=== PATIENT | male | born 1965 | race Two or more races ===

== ENCOUNTER 2025-01-15 10:46 | Inpatient (IN) | payer OTHER ==
[2025-01-15] VITALS (7 sets, daily range): BP systolic 106–124; BP diastolic 67–79; PULSE 86–101; RESP 16–20; TEMP 98; O2SAT 91–100
[~2025-01-15] VITALS: Ht 170.2 cm; Wt 57.0 kg
--- NOTE | 2025-01-15 11:19 | ED.PDOC ---
History of Present Illness HPI Comments 59 y/o M, with PMHx dementia, Alzheimer, and HTN presents to the ED for CC of failure to thrive. EMS reports, patient is coming from custodial facility where staff called d/t patient becoming increasingly weak. No other symptoms or modifying factors present at this time. Chief Complaint: Failure to Thrive Time Seen by MD: 11:15 Reviewed Notes: Nurses Notes, Water Taxi Captain Notes, Medications, Allergies Allergies: Coded Allergies: NO KNOWN ALLERGIES (Unverified , 01/15/25) Information Source: Emergency Med Personnel Mode of Arrival: EMS Severity: Moderate Timing: Weeks Duration: Since onset Prehospital treatment: None Past Medical History PAST MEDICAL HISTORY: Denies Surgical History: Denies all surgeries Family History Family History: Unknown Social History Smoker: Non-Smoker Alcohol: Denies ETOH Use Drugs: Denies Drug Use Lives In: Home Unable to Obtain due to: Dementia Physical Exam General Appearance: No Apparent Distress, Normal HEENT: Normal ENT Inspection, Pharynx Normal Neck: Full Range of Motion, Non-Tender, Normal, Normal Inspection Respiratory: Chest Non-Tender, Lungs Clear, No Accessory Muscle Use, No Respiratory Distress, Normal Breath Sounds Cardiovascular: No Edema, No Murmur, No Gallop, Normal Peripheral Pulses, Regular Rate/Rhythm Breast Exam: Deferred Gastrointestinal: No Organomegaly, Non Tender, No Pulsatile Mass, Normal Bowel Sounds, Soft Genitalia: Deferred Pelvic: Deferred Rectal: Deferred Extremities: No calf tenderness, Normal capillary refill, Normal inspection, Normal range of motion, Non-tender, No pedal edema Musculoskeletal : Apperance: Normal Neurologic: sourcing manager II-XII nml as Tested, No Motor Deficits, Normal Affect, No Sensory Deficits, Speech Problem (Nonverbal) Cerebellar Function: Normal Reflexes: Normal Skin: Dry, Normal Color, Warm Lymphatic: No Adenopathy Was a procedure done? Was a procedure done?: No Differential Dx Considerations may include: Infection, CVA, dementia, Alzheimer's X-Ray, Labs, Meds, VS Vital Signs Date Time Temp Pulse Resp B/P (MAP) Pulse Ox O2 Delivery O2 Flow Rate FiO2 01/15/25 13:02 98.8 99 11 119/68 (85) 97 98.8 01/15/25 12:29 18 99 Nasal Cannula* 3 32 01/15/25 12:27 113/78 01/15/25 12:16 88 01/15/25 11:40 86 20 97 Room Air* 0 21 01/15/25 11:34 88 18 96/57 (70) 98 01/15/25 11:03 88 01/15/25 10:50 97.2 91 16 108/50 (69) 97 97.2 Lab Test 01/15/25 13:10 01/15/25 13:03 01/15/25 12:23 01/15/25 12:00 Range/Units Lactic Acid Level 5.7 *H 0.4-2.0 mmol/L Troponin I High Sensitivity 82 *H </=54 ng/L POC Glucose 125 H 70-106 mg/dl Urine Color Yellow Yellow Urine Clarity Clear Clear Urine pH 5.5 5.0-9.0 Urine Specific [place] 1.018 1.001-1.035 Urine Protein Negative Negative Urine Ketones Negative Negative Urine Blood 1+ H Negative /uL Urine Nitrite Negative Negative Urine Bilirubin Negative Negative Urine Urobilinogen Normal Negative mg/dL Urine Leukocyte Esterase Negative Negative /uL Urine RBC 17 0 - 3 /hpf Urine Microscopic WBC 4 H 0-3 /HPF Urine Squamous Epithelial Cells None seen <5 /hpf Urine Bacteria None seen None Seen /hpf Urine Glucose Normal Normal mg/dL Test 01/15/25 11:15 Range/Units White Blood Count 16.3 H 4.4-10.8 10^3/uL Red Blood Count 4.99 4.5-5.90 10^6/uL Hemoglobin 14.4 13.5-17.5 g/dL Hematocrit 45.4 41.0-53.0 % Mean Corpuscular Volume 90.9 80.0-100.0 fL Mean Corpuscular Hemoglobin 28.8 28.0-32.0 pg Mean Corpuscular Hemoglobin Concent 31.7 L 32.0-36.0 g/dL Red Cell Distribution Width 17.1 H 11.8-14.3 % Platelet Count 372 140-450 10^3/uL Mean Platelet Volume 9.3 6.9-10.8 fL Neutrophils (%) (Auto) 86.7 H 37.0-80.0 % Lymphocytes (%) (Auto) 6.6 L 10.0-50.0 % Monocytes (%) (Auto) 6.6 0.0-12.0 % Eosinophils (%) (Auto) 0.0 0.0-7.0 % Basophils (%) (Auto) 0.1 0.0-2.0 % Neutrophils # (Auto) 14.1 H 1.6-8.6 10 ^3/uL Lymphocytes # (Auto) 1.1 0.4-5.4 10 ^3/uL Monocytes # (Auto) 1.1 0-1.3 10 ^3/uL Eosinophils # (Auto) 0 0-0.8 10 ^3/uL Basophils # (Auto) 0 0-0.2 10 ^3/uL Nucleated Red Blood Cells 0.0 % Sodium Level 184 *H 136-145 mmol/L Potassium Level 6.1 *H 3.5-5.1 mmol/L Chloride Level 137 H 98-107 mmol/L Carbon Dioxide Level 19 L 20-31 mmol/L Anion Gap 28 H 5-15 Blood Urea Nitrogen 153 *H 9-23 mg/dL Creatinine 12.95 *H 0.700-1.30 mg/dL Glomerular Filtration Rate Calc 4 >90 mL/min BUN/Creatinine Ratio 11.8 10.0-20.0 Serum Glucose 144 H 74-106 mg/dL Lactic Acid Level 4.9 *H 0.4-2.0 mmol/L Calcium Level 9.3 8.7-10.4 mg/dL Troponin I High Sensitivity 97 *H </=54 ng/L Current Medications Medications (Trade) Dose Ordered Sig/Talha Route Start Time Stop Time Status Last Admin Sodium Chloride 2,050 ml @ 2,050 mls/hr ONCE ONCE IV 01/15/25 12:15 01/15/25 13:14 DC 01/15/25 12:28 Insulin Human Regular (InsuLIN R) 5 units ONCE ONCE IV 01/15/25 12:15 01/15/25 12:16 DC 01/15/25 12:25 Dextrose 50 ml ONCE ONCE IV 01/15/25 12:15 01/15/25 12:16 DC 01/15/25 12:22 Albuterol (Ventolin Medneb) 20 mg ONCE ONCE NEB 01/15/25 12:15 01/15/25 12:16 DC 01/15/25 12:28 Sodium Bicarbonate 50 ml ONCE ONCE IV 01/15/25 12:15 01/15/25 12:16 DC 01/15/25 12:22 Furosemide (Lasix Injection) 20 mg ONCE ONCE IV 01/15/25 12:15 01/15/25 12:16 DC 01/15/25 12:27 Calcium Gluconate/ Sodium Chloride 50 ml @ 120 mls/hr ONCE ONCE IV 01/15/25 12:15 01/15/25 12:39 DC 01/15/25 12:23 Cefepime HCl 50 ml @ 12.5 mls/hr ONCE ONCE IV 01/15/25 12:45 01/15/25 16:44 01/15/25 12:54 Vancomycin HCl 200 ml @ 200 mls/hr ONCE ONCE IV 01/15/25 12:45 01/15/25 13:44 DC 01/15/25 12:54 Sodium Chloride 1,000 ml @ 1,000 mls/hr Q1H ONCE IV 01/15/25 12:45 01/15/25 13:44 DC 01/15/25 13:03 [place] [id number] Ph: [phone] DIAGNOSTIC IMAGING Diagnostic Imaging Report : [id number] Signed PATIENT: MOMO JENSEN ACCT: [id number] UNIT: [id number] : 1965 LOC: ER ROOM / BED: / AGE / SEX: 59 / M ADM STATUS: REG ER SERVICE 1103 ORDERING PHYSICIAN: LINDA CARLSON MD PROCEDURE(s): CXRP - CHEST PORTABLE REASON: [facility] ORDER NUMBER(s): [id number], ACCESSION NUMBER(s): [id number] EXAM: XY CHEST PORTABLE HISTORY: ams COMPARISON: None TECHNIQUE: Portable AP view of the chest was performed. FINDINGS: No pneumothorax, consolidative infiltrates, or pulmonary edema. The heart is not enlarged. There is thoracic dextroscoliosis. IMPRESSION: No acute intrathoracic process. ATED BY: JENNIFER MANUEL MD DICTATED DATE/TIME: 01/15/251225 SIGNED BY: JENNIFER MANUEL MD SIGNED DATE/TIME: 01/15/251225 CC: [place] [id number] Ph: [phone] DIAGNOSTIC IMAGING Diagnostic Imaging Report : [id number] Signed PATIENT: MOMO JENSEN ACCT: [id number] UNIT: [id number] : 1965 LOC: ER ROOM / BED: / AGE / SEX: 59 / M ADM STATUS: REG ER SERVICE 1103 ORDERING PHYSICIAN: LINDA CARLSON MD PROCEDURE(s): HWOCT - HEAD WITHOUT CONTRAST REASON: ams ORDER NUMBER(s): [id number], ACCESSION NUMBER(s): [id number] EXAM: CT HEAD WITHOUT CONTRAST HISTORY: ams COMPARISON: None TECHNIQUE: Noncontrast axial CT images of the head were performed. Sagittal and coronal reformatted images were obtained. This CT exam was performed using 1 or more of the following dose reduction techniques: Automated exposure control, adjustment of the mA and/or kv according to patient size, or the use of it erative reconstruction techniques. Radiation Dose: CTDI volume is 52.31 mGy. Dose-length product is 838.66 mGy*cm FINDINGS: There is right frontotemporal encephalomalacia. There is decreased attenuation in the periventricular white matter. There are old lacunar infarcts of the bilateral basal ganglia and external capsules. No intracranial hemorrhage, mass, midline shift, hydrocephalus, or evidence of acute large vessel infarct. The partially-visualized paranasal sinuses are clear. The bilateral mastoid air cells and middle ear spaces are clear. No cranial fracture or scalp edema. IMPRESSION: Global brain atrophy and chronic ischemic changes without evidence of acute intracranial process. ATED BY: JENNIFER MANUEL MD DICTATED DATE/TIME: 01/15/25 1235 SIGNED BY: JENNIFER MANUEL MD SIGNED DATE/TIME: 01/15/25 1235 CC: Time of 1ST Reevaluation: 11:45 Reevaluation 1ST: Unchanged Patient Education/Counseling: Diagnosis, Treatment Family Education/Counseling: No Family Present Sepsis Sepsis Reasesment Focused Exam Orders: Laboratory Tests 01/15/25 11:15: Lactic Acid Level 4.9 01/15/25 13:10: Lactic Acid Level 5.7 Departure 1 Departure Time of Disposition: 13:52 (Patient with a worsening altered mental status concerning for metabolic encephalopathy, possible sepsis. We will not give the patient full fluid boluses patient severely hypernatremic so we will administer fluids slowly. Patient likely had obstructive uropathy causing renal failure. After catheter was placed patient had more than a Liter out.) Impression: Primary Impression: Acute metabolic encephalopathy Additional Impressions: Sepsis Qualified Codes: A41.9 - Sepsis, unspecified organism; R65.20 - Severe sepsis without septic shock; G93.41 - Metabolic encephalopathy Generalized weakness Acute renal failure Qualified Codes: N17.9 - Acute kidney failure, unspecified Disposition: ADMITTED INPATIENT Admit to: Tele Condition: Critical Critical Care Note Critical Care Time?: Yes Critical care comment: Sepsis Authorized and Performed by: Linda Carlson MD Total critical care time: Approximately 48 minutes Due to a high probability of clinically significant, life threatening deterioration, the patient required my highest level of preparedness to intervene emergently and I personally spent this critical care time directly and personally managing the patient. This critical care time included obtaining a history; examining the patient; pulse oximetry; ordering and review of studies; arranging urgent treatment with development of a management plan; evaluation of patient's response to treatment; frequent reassessment; and, discussions with other providers. This critical care time was performed to assess and manage the high probability of imminent, life-threatening deterioration that could result in multi-organ failure. It was exclusive of separately billable procedures and treating other patients and teaching time. Please see my other sections and the rest of the note for further information on patient assessment and treatment. Stability Stability form required: No Heart Score Heart Score: Heart Score Response (Comments) Value History N/A 0 EKG N/A 0 Age N/A 0 Risk Factors N/A 0 Troponin N/A 0 Total 0 I personally scribed for LINDA CARLSON MD ([email or web address]) on 01/15/25 at 11:19. Electronically submitted by Shannon Reno ([email or web address]). I personally scribed for LINDA CARLSON MD ([email or web address]) on 01/15/25 at 12:51. Electronically submitted by Shannon Reno ([email or web address]). LINDA CARLSON MD Jan 15, 2025 11:19
[2025-01-15 11:29] LABS: Basophils # (auto) 0 10 ^3/uL (0-0.2); Basophils % (auto) 0.1 % (0.0-2.0); Eosinophils # (auto) 0 10 ^3/uL (0-0.8); Hematocrit 45.4 % (41.0-53.0); Hemoglobin 14.4 g/dL (13.5-17.5); Lymphocytes # (auto) 1.1 10 ^3/uL (0.4-5.4); Lymphocytes % (auto) 6.6 % (10.0-50.0); Mean Corpuscular Hemoglobin 28.8 pg (28.0-32.0); Mean Corpuscular Hgb Conc. 31.7 g/dL (32.0-36.0); Mean Corpuscular Volume 90.9 fL (80.0-100.0); Monocytes # (auto) 1.1 10 ^3/uL (0-1.3); Monocytes % (auto) 6.6 % (0.0-12.0); Neutrophils # (auto) 14.1 10 ^3/uL (1.6-8.6); Neutrophils % (auto) 86.7 % (37.0-80.0); Platelet Count (auto) 372 10^3/uL (140-450); Red Blood Cells 4.99 10^6/uL (4.5-5.90); Red Cell Distribution Width 17.1 % (11.8-14.3); White Blood Cell 16.3 10^3/uL (4.4-10.8)
[2025-01-15 11:46] LABS: Anion Gap 28 (5-15); Calcium 9.3 mg/dL (8.7-10.4)
[2025-01-15 12:00] LABS: BUN/Creatinine Ratio 11.8 (10.0-20.0)
[2025-01-15 12:02] LABS: Carbon Dioxide 19 mmol/L (20-31); Chloride 137 mmol/L (98-107); Glucose 144 mg/dL (74-106)
[2025-01-15 12:04] LABS: Blood Urea Nitrogen 153 mg/dL (9-23); Potassium 6.1 mmol/L (3.5-5.1); Sodium 184 mmol/L (136-145)
[2025-01-15 12:05] LABS: Lactic Acid w/Reflex 4.9 mmol/L (0.4-2.0)
[2025-01-15 12:19] LABS: Urine Bacteria None Seen /hpf (None Seen)
[2025-01-15] MEDS: SODIUM BICARB 8.4% 50Meq/50ml SYR INJ IV ONE (12:22)
[2025-01-15] MEDS: DEXTROSE (50%) 50ML SYRG IV ONE (12:22)
[2025-01-15] MEDS: CALCIUM GLUC 1,000mg/50ml-NS 50 ML IV ONE (12:23)
[2025-01-15] MEDS: InsuLIN REG 1unit/0.01ml Soln (100units/ml) IV ONE (12:25)
[2025-01-15] MEDS: FUROSEMIDE 20 MG/2 ML VIAL IV ONE (12:27)
[2025-01-15] MEDS: SODIUM CHLORIDE 0.9% 2,050 ML IV ONE (12:28)
[2025-01-15] MEDS: ALBUTEROL SULF 2.5 MG/0.5ML(0.5%) NEB SOLN NEB ONE (12:28)
--- NOTE | 2025-01-15 12:29 | DVH ---
EXAM: XY CHEST PORTABLE HISTORY: ams COMPARISON: None TECHNIQUE: Portable AP view of the chest was performed. FINDINGS: No pneumothorax, consolidative infiltrates, or pulmonary edema. The heart is not enlarged. There is t horacic dextroscoliosis. IMPRESSION: No acute intrathoracic process.
[2025-01-15 12:35] LABS: Urine Blood 1+ /uL (Negative); Urine Clarity Clear (Clear); Urine Color Yellow (Yellow); Urine Protein, UAD Negative (Negative); Urine Specific Gravity 1.018 (1.001-1.035); Urine Squamous Epithelial Cell None Seen /hpf (<5); Urine Urobilinogen Normal (Negative); Urine WBC 4 /HPF (0-3); Urine pH 5.5 (5.0-9.0)
--- NOTE | 2025-01-15 12:38 | DVH ---
EXAM: CT HEAD WITHOUT CONTRAST HISTORY: ams COMPARISON: None TECHNIQUE: Noncontrast axial CT images of the head were performed. Sagittal and coronal reformatted i mages were obtained. This CT exam was performed using 1 or more of the following dose reduction techn iques: Automated exposure control, adjustment of the mA and/or kv according to patient size, or the u se of iterative reconstruction techniques. Radiation Dose: CTDI volume is 52.31 mGy. Dose-length product is 838.66 mGy*cm FINDINGS: There is right frontotemporal encephalomalacia. There is decreased attenuation in the periventricula r white matter. There are old lacunar infarcts of the bilateral basal ganglia and external capsules. No intracranial hemorrhage, mass, midline shift, hydrocephalus, or evidence of acute large vessel in farct. The partially-visualized paranasal sinuses are clear. The bilateral mastoid air cells and midd le ear spaces are clear. No cranial fracture or scalp edema. IMPRESSION: Global brain atrophy and chronic ischemic changes without evidence of acute intracranial process.
[2025-01-15] MEDS: CEFEPIME 2GM/50ML NS 50 ML IV ONE (12:54)
[2025-01-15] MEDS: VANCOMYCIN 1GM/200ML PM 200 ML IV ONE (12:54)
[2025-01-15] MEDS: SODIUM CHLORIDE 0.9% 1,000 ML IV ONE ×2 (13:03→14:20)
[2025-01-15] MEDS ORDERED: DEXTROSE (50%) 50ML SYRG IV PRN (16:00)
[2025-01-15] MEDS ORDERED: ENOXAPARIN SOD 100 MG/1 ML SYRINGE SC ONE (16:00)
[2025-01-15] MEDS ORDERED: NITROGLYCERIN 0.4 MG SL TAB SL PRN (16:00)
[2025-01-15] MEDS ORDERED: MORPHINE SULFATE INJ 2 MG/ml SYRG IV PRN (16:00)
--- NOTE | 2025-01-15 16:07 | DVHHP2 ---
History of Present Illness Reason for Visit: Failure to thrive History of Present Illness Patient is a 59-year-old male transported to the emergency room by ambulance with reports of worsening lethargy/failure to thrive. Upon arrival to the hospital, patient was found to be severely cachectic. Patient is currently aphasic, but was able to follow simple commands and nods yes and no. Apparently, the patient has a history of being aphasic. [facility], significant history of the patient includes HIV, hypertension, diabetes mellitus, and unspecified psychiatric diagnosis for which he takes Seroquel. Patient was found to be hyperkalemic, with a potassium of 6.1, with severely elevated BUN and creatinine (123/12.9) as well as patient having a sodium level of 184. Patient also has white blood cell count of 16.1. Lactic acid level of 4.9. Cardiovascular: HTN Infectious disease: HIV Endocrine: Diabetes Review of Systems Review of Systems Patient aphasic and denies any symptoms. Somewhat encephalopathic. Allergies: Coded Allergies: NO KNOWN ALLERGIES (Unverified , 01/15/25) Medications Current Medications Medications Dose Ordered Sig/[place] Route Start Time Stop Time Status Last Admin Dose Admin Nitroglycerin 0.4 mg Q5MINP PRN SL 01/15/25 16:00 UNV Morphine Sulfate 2 mg Q30M PRN IV 01/15/25 16:00 UNV Dextrose 1,000 ml @ 200 mls/hr Q5H IV 01/15/25 16:00 UNV Pantoprazole Sodium 40 mg DAILY IV 01/16/25 10:00 UNV Exam Vital Signs Vital Signs Date Time Temp Pulse Resp B/P (MAP) Pulse Ox O2 Delivery O2 Flow Rate FiO2 01/15/25 13:02 98.8 99 11 119/68 (85) 97 98.8 01/15/25 12:29 Nasal Cannula* 3 32 General Appearance: Alert, moderate distress, Other (Disheveled) HEENT: Atraumatic, PERRLA Respiratory: Clear to auscultation, Normal air movement Cardiovascular: Normal S1, Normal S2, Other (ST depressions noted) Extremities: Other (Systemic dry skin with noted scratch [place] throughout his body) Skin: No significant lesion (Systemic dry skin with noted scratch [place] throughout his body) Psych/Mental Status: Other (Withdrawn) Labs/Xrays Labs Test 01/15/25 15:13 01/15/25 13:10 01/15/25 12:23 01/15/25 12:00 Range/Units Potassium Level 4.9 3.5-5.1 mmol/L Troponin I High Sensitivity 91 *H </=54 ng/L Lactic Acid Level 5.7 *H 0.4-2.0 mmol/L POC Glucose 125 H 70-106 mg/dl Urine Color Yellow Yellow Urine Clarity Clear Clear Urine pH 5.5 5.0-9.0 Urine Specific [place] 1.018 1.001-1.035 Urine Protein Negative Negative Urine Ketones Negative Negative Urine Blood 1+ H Negative /uL Urine Nitrite Negative Negative Urine Bilirubin Negative Negative Urine Urobilinogen Normal Negative mg/dL Urine Leukocyte Esterase Negative Negative /uL Urine RBC 17 0 - 3 /hpf Urine Microscopic WBC 4 H 0-3 /HPF Urine Squamous Epithelial Cells None seen <5 /hpf Urine Bacteria None seen None Seen /hpf Urine Glucose Normal Normal mg/dL Test 01/15/25 11:15 Range/Units White Blood Count 16.3 H 4.4-10.8 10^3/uL Red Blood Count 4.99 4.5-5.90 10^6/uL Hemoglobin 14.4 13.5-17.5 g/dL Hematocrit 45.4 41.0-53.0 % Mean Corpuscular Volume 90.9 80.0-100.0 fL Mean Corpuscular Hemoglobin 28.8 28.0-32.0 pg Mean Corpuscular Hemoglobin Concent 31.7 L 32.0-36.0 g/dL Red Cell Distribution Width 17.1 H 11.8-14.3 % Platelet Count 372 140-450 10^3/uL Mean Platelet Volume 9.3 6.9-10.8 fL Neutrophils (%) (Auto) 86.7 H 37.0-80.0 % Lymphocytes (%) (Auto) 6.6 L 10.0-50.0 % Monocytes (%) (Auto) 6.6 0.0-12.0 % Eosinophils (%) (Auto) 0.0 0.0-7.0 % Basophils (%) (Auto) 0.1 0.0-2.0 % Neutrophils # (Auto) 14.1 H 1.6-8.6 10 ^3/uL Lymphocytes # (Auto) 1.1 0.4-5.4 10 ^3/uL Monocytes # (Auto) 1.1 0-1.3 10 ^3/uL Eosinophils # (Auto) 0 0-0.8 10 ^3/uL Basophils # (Auto) 0 0-0.2 10 ^3/uL Nucleated Red Blood Cells 0.0 % Sodium Level 184 *H 136-145 mmol/L Chloride Level 137 H 98-107 mmol/L Carbon Dioxide Level 19 L 20-31 mmol/L Anion Gap 28 H 5-15 Blood Urea Nitrogen 153 *H 9-23 mg/dL Creatinine 12.95 *H 0.700-1.30 mg/dL Glomerular Filtration Rate Calc 4 >90 mL/min BUN/Creatinine Ratio 11.8 10.0-20.0 Serum Glucose 144 H 74-106 mg/dL Calcium Level 9.3 8.7-10.4 mg/dL Assessment/Plan Assessment/Plan Impression: -metabolic encephalopathy probably secondary to severe dehydration -hyponatremia -acute kidney injury -hyperkalemia -NSTEMI, probably type 2 -history of primary hypertension -history of HIV -diabetes mellitus -cachexia -sepsis Plan: -admit to ICU -free water deficit: 9.3 L. half NS bolus x1 L then D5W at 200 mL/hour -serial BMP q.6 hours -empiric antibiotics: Cefepime, Zyvox -nephrology consultation -regular insulin sliding scale -swallow evaluation, we will add free water if patient can swallow on without having signs of aspiration -hold home antihypertensives, antidiabetic meds, antipsychotics -espino cultures Critical care time spent with patient discussing and formulating plan of care: 40 minutes. This does not include time spent performing procedures. This medical document was created using an electronic medical record system with Aditive dictation system. Although this document has been carefully reviewed, there may still be some phonetic and typographical errors. These areas are purely typographical due to imperfections of the software programs, and do not reflect any compromise in the patient's medical care. Plan discussed with: Patient, Other My Orders Orders - MARTIN SANCHEZ CANDY FEEDER Procedure Category Date Status Time Admit ADMIT 01/15/25 Transmitted 15:48 Nitroglycerin PHA 01/15/25 Logged Sublingual (Ntrostat 16:00 Morphine Sulfate PHA 01/15/25 Logged Injection 16:00 Stat Ekg For Chest NAIDA 01/15/25 Transmitted Pain 15:48 Notify Of Changes NAIDA 01/15/25 Transmitted From Base 15:48 Bean Snipper For NAIDA 01/15/25 Transmitted 24 Hours 15:48 Emergency Dysrhythmia NAIDA 01/15/25 Transmitted Protocol 15:48 Rhythm Strips Once NAIDA 01/15/25 Transmitted Every Shift 15:48 Oxygen By Nasal RT 01/15/25 Transmitted Cannula 15:48 D5w 5% (Dextrose 5%) PHA 01/15/25 Logged 16:00 * Swallow Request ST 01/15/25 Transmitted 15:48 Pantoprazole PHA 01/16/25 Logged (Protonix) 10:00 *[facility] CONS 01/15/25 Transmitted -[place] 15:48 Sod Chl 0.45% (Sodium PHA 01/15/25 Logged Chloride 0.45% Via 16:00 Electrocardigram EKG 01/15/25 Transmitted 15:48 Electrocardigram EKG 01/15/25 Transmitted 16:48 Basic Metabolic Panel LAB 01/15/25 Transmitted 18:00 Basic Metabolic Panel LAB 01/16/25 Verified 00:00 Basic Metabolic Panel LAB 01/16/25 Verified 06:00 Basic Metabolic Panel LAB 01/16/25 Verified 12:00 Basic Metabolic Panel LAB 01/16/25 Verified 18:00 Basic Metabolic Panel LAB 01/17/25 Verified 00:00 Basic Metabolic Panel LAB 01/17/25 Verified 06:00 Basic Metabolic Panel LAB 01/17/25 Verified 12:00 Enoxaparin Sodium PHA 01/15/25 Logged (Lovenox) 16:00 Enoxaparin Sodium PHA 01/16/25 Transmitted (Lovenox) 10:00 Cefepime 1 Gm PHA 01/16/25 Transmitted 10:00 Linzeolid 600 Mg Ivpb PHA 01/15/25 Transmitted 22:00 Glucose Blood PHA 01/15/25 Transmitted (Accu-Chek Comfort 17:00 Mild Sliding Scale PHA 01/15/25 Transmitted 17:00 Dextrose 50% Syringe PHA 01/15/25 Transmitted 16:00 Echo 2d Mode Cardiac US 01/15/25 Transmitted DOP 15:48 Complete Blood Count LAB 01/16/25 Verified 05:00 Complete Blood Count LAB 01/17/25 Verified 05:00 Complete Blood Count LAB 01/18/25 Verified 05:00 Complete Blood Count LAB 01/19/25 Verified 05:00 Complete Blood Count LAB 01/20/25 Verified 05:00 Date of Service: Jan 15, 2025 Billing Provider: MARTIN SANCHEZ NP Common Visit Codes: 07001-[id number] CARE 30-74 MIN MARTIN SANCHEZ NP Jan 15, 2025 16:07
[2025-01-15] MEDS: SOD CHL 0.45% 1,000 ML IV ONE (16:28)
[2025-01-15] MEDS: InsuLIN REG 1unit/0.01ml Soln (100units/ml) SC SCH (18:00)
[2025-01-15] MEDS: ENOXAPARIN SOD 60 MG/0.6 ML SYRINGE SC ONE (18:00)
[2025-01-15] MEDS: ACCU-CHEK COMFORT CURVE STRIP VI SCH (18:04)
[2025-01-15] MEDS: PERMETHRIN 5 % TOPICAL CREAM 60GM TOP ONE (18:04)
[2025-01-15 18:47] LABS: Anion Gap 27 (5-15)
[2025-01-15 18:53] LABS: BUN/Creatinine Ratio 13.7 (10.0-20.0)
[2025-01-15 19:12] LABS: Calcium 8.4 mg/dL (8.7-10.4); Carbon Dioxide 17 mmol/L (20-31); Chloride 142 mmol/L (98-107); Glucose 168 mg/dL (74-106); Potassium 4.9 mmol/L (3.5-5.1)
[2025-01-15 19:18] LABS: Blood Urea Nitrogen 130 mg/dL (9-23); Sodium 186 mmol/L (136-145)
[2025-01-15] MEDS: D5W 5% 1,000 ML IV SCH (21:23)
[2025-01-15] MEDS: LINEZOLID 600MG/300ML 300 ML IV SCH (21:52)
[2025-01-16] VITALS (30 sets, daily range): BP systolic 105–128; BP diastolic 61–93; PULSE 75–99; RESP 12–25; TEMP 98.4–99; O2SAT 28–100
[2025-01-16 01:30] LABS: Anion Gap 19 (5-15); BUN/Creatinine Ratio 12.7 (10.0-20.0); Carbon Dioxide 21 mmol/L (20-31); Potassium 4.2 mmol/L (3.5-5.1)
[2025-01-16 01:51] LABS: Calcium 7.6 mg/dL (8.7-10.4); Chloride 139 mmol/L (98-107); Glucose 227 mg/dL (74-106)
[2025-01-16 01:52] LABS: Sodium 179 mmol/L (136-145)
[2025-01-16 01:53] LABS: Blood Urea Nitrogen 90 mg/dL (9-23)
--- NOTE | 2025-01-16 03:12 | ECG ---
[facility] Test Date: 2025-01-15 Test Time: 11:03:17 Pat Name: MOMO JENSEN Department: ER Room: [address] [place] [address] Gender: M Flow Machine Operator: : 1965 Requested By: LINDA HEARD Order Number: [id number] Reading MD: Levy Jolley Measurements Intervals [place]inne Rate: 88 P: 85 WV: 116 QRS: 86 QRSD: 86 T: -80 QT: 437 QTc: 529 Interpretive Statements Sinus rhythm Borderline short WV interval Borderline right axis deviation Borderline repolarization abnormality Prolonged QT interval Electronically Signed On 01-16-2025 21:08:43 PDT by Levy Jolley Please click the below link to view image of tracing.
[2025-01-16 07:33] LABS: Basophils # (auto) 0 10 ^3/uL (0-0.2); Basophils % (auto) 0.1 % (0.0-2.0); Eosinophils # (auto) 0 10 ^3/uL (0-0.8); Eosinophils % (auto) 0.1 % (0.0-7.0); Hematocrit 41.8 % (41.0-53.0); Lymphocytes # (auto) 0.9 10 ^3/uL (0.4-5.4); Mean Corpuscular Hemoglobin 28.8 pg (28.0-32.0); Mean Corpuscular Hgb Conc. 31.1 g/dL (32.0-36.0); Mean Corpuscular Volume 92.5 fL (80.0-100.0); Monocytes # (auto) 0.5 10 ^3/uL (0-1.3); Neutrophils # (auto) 16.2 10 ^3/uL (1.6-8.6); Neutrophils % (auto) 91.8 % (37.0-80.0); Platelet Count (auto) 284 10^3/uL (140-450); Red Blood Cells 4.51 10^6/uL (4.5-5.90); Red Cell Distribution Width 16.8 % (11.8-14.3); White Blood Cell 17.7 10^3/uL (4.4-10.8)
[2025-01-16 07:58] LABS: Anion Gap 20 (5-15); Carbon Dioxide 20 mmol/L (20-31); Potassium 3.8 mmol/L (3.5-5.1)
[2025-01-16 08:04] LABS: BUN/Creatinine Ratio 15.9 (10.0-20.0)
[2025-01-16 08:06] LABS: Chloride 137 mmol/L (98-107); Glucose 295 mg/dL (74-106)
[2025-01-16 08:11] LABS: Blood Urea Nitrogen 85 mg/dL (9-23); Sodium 177 mmol/L (136-145)
[2025-01-16] MEDS ORDERED: IPRATROPIUM BROM 0.5 MG/2.5ML INH SOL NEB PRN (08:45)
[2025-01-16] MEDS ORDERED: ACETAMINOPHEN 500 MG TAB or CAP PO PRN (08:45)
[2025-01-16] MEDS ORDERED: ALBUTEROL SULF 2.5 MG/0.5ML(0.5%) NEB SOLN NEB PRN (08:45)
[2025-01-16] MEDS ORDERED: DOCUSATE SOD 100 MG CAP PO PRN (08:45)
[2025-01-16] MEDS ORDERED: HYDROcodone-ACET 5/325MG TAB PO PRN (08:45)
[2025-01-16] MEDS ORDERED: ONDANSETRON HCL 4 MG/2 ML VIAL IV PRN (08:45)
--- NOTE | 2025-01-16 08:53 | DVHPN2 ---
Subjective Patient continues to report having generalized itchiness Reviewed: Care Plan, H&P, Labs Changes from previous H/P or p: No Changes General: Per HPI Objective Vitals Vital Signs Date Time Temp Pulse Resp B/P (MAP) Pulse Ox O2 Delivery O2 Flow Rate FiO2 01/16/25 08:00 87 18 100 Room Air* 0 21 01/16/25 06:00 125/75 (92) 01/16/25 04:00 98.7 98.7 Intake/Output Intake and Output 01/16/25 07:00 Intake Total 5850 ml Output Total 2600 ml Balance 3250 ml Intake Oral 0 ml IV Total 5850 ml Output Urine Total 2600 ml General Appearance: Alert, Cooperative, moderate distress HEENT: Atraumatic, PERRLA Lungs: Normal air movement Cardiovascular: Normal S1, Normal S2 Neuro: Cranial nerves 3-12 NL Skin: Wounds (See nurse notes and pictures) Psych/Mental Status: Mental status NL, Mood NL Medications Current Medications Medications Dose Ordered Sig/Talha Route Start Time Stop Time Status Last Admin Dose Admin Nitroglycerin 0.4 mg Q5MINP PRN SL 01/15/25 16:00 Morphine Sulfate 2 mg Q30M PRN IV 01/15/25 16:00 Dextrose 1,000 ml @ 200 mls/hr Q5H IV 01/15/25 16:00 01/16/25 06:33 200 MLS/HR Pantoprazole Sodium 40 mg DAILY IV 01/16/25 10:00 Enoxaparin Sodium 30 mg DAILY SC 01/16/25 10:00 Cefepime HCl 50 ml @ 12.5 mls/hr DAILY IV 01/16/25 10:00 Linezolid 300 ml @ 150 mls/hr Q12HR IV 01/15/25 22:00 01/15/25 21:52 150 MLS/HR Diagnostic Test (Pha) 1 strip ACHS 01/15/25 17:00 01/16/25 06:33 1 STRIP Insulin Human Regular ACHS SC 01/15/25 17:00 01/16/25 06:34 8 UNITS Dextrose 50 ml UD PRN IV 01/15/25 16:00 Laboratory Results Laboratory Tests 01/16/25 07:00 Chemistry Test 01/15/25 11:15 01/15/25 17:55 01/16/25 00:27 01/16/25 07:00 Calcium Level 9.3 mg/dL (8.7-10.4) 8.4 mg/dL (8.7-10.4) L 7.6 mg/dL (8.7-10.4) L 8.0 mg/dL (8.7-10.4) L Urinalysis Test 01/15/25 12:00 Urine Color Yellow (Yellow) Urine Clarity Clear (Clear) Urine pH 5.5 (5.0-9.0) Urine Specific [place] 1.018 (1.001-1.035) Urine Protein Negative (Negative) Urine Ketones Negative (Negative) Urine Blood 1+ /uL (Negative) H Urine Nitrite Negative (Negative) Urine Bilirubin Negative (Negative) Urine Urobilinogen Normal mg/dL (Negative) Urine Leukocyte Esterase Negative /uL (Negative) Urine RBC 17 /hpf (0 - 3) Urine Microscopic WBC 4 /HPF (0-3) H Urine Squamous Epithelial Cells None seen /hpf (<5) Urine Bacteria None seen /hpf (None Seen) Urine Glucose Normal mg/dL (Normal) Labs and/or images reviewed: Labs reviewed by me, Image(s) reviewed by me Assessment/Plan Assessment/Plan Impression: -metabolic encephalopathy probably secondary to severe dehydration -hyponatremia -acute kidney injury -hyperkalemia -NSTEMI, probably type 2 -history of primary hypertension -history of HIV -diabetes mellitus -cachexia -sepsis -scabies Plan: Events: Improvement with hypernatremia, hyperkalemia, renal function. Urine output 2600 over 24 hours. Patient now with hypoglycemia -regular insulin sliding scale with Lantus -permethrin cream -continue aggressive volume resuscitation with D5W at 200 mL/hour -attempt diet, free water 200 mL q.6 hours -serial BMP q.6 hours -empiric antibiotics: Cefepime, Zyvox -nephrology consultation -hold home antihypertensives, antidiabetic meds, antipsychotics -espino cultures: Pending -repeat labs in a.m. Critical care time spent with patient discussing and formulating plan of care: 40 minutes. This does not include time spent performing procedures. This medical document was created using an electronic medical record system with [employer] dictation system. Although this document has been carefully reviewed, there may still be some phonetic and typographical errors. These areas are purely typographical due to imperfections of the software programs, and do not reflect any compromise in the patient's medical care. Plan discussed with: Patient, Other (RN) My Orders Orders - MARTIN SANCHEZ NP Procedure Category Date Status Time Admit ADMIT 01/15/25 Transmitted 15:48 Nitroglycerin PHA 01/15/25 In Process Sublingual (Ntrostat 16:00 Morphine Sulfate PHA 01/15/25 In Process Injection 16:00 Stat Ekg For Chest NAIDA 01/15/25 In Process Pain 15:48 Notify Md Of Changes NAIDA 01/15/25 In Process From Base 15:48 Heel Seater For NAIDA 01/15/25 In Process 24 Hours 15:48 Emergency Dysrhythmia NAIDA 01/15/25 In Process Protocol 15:48 Rhythm Strips Once NAIDA 01/15/25 In Process Every Shift 15:48 Oxygen By Nasal RT 01/15/25 Transmitted Cannula 15:48 D5w 5% (Dextrose 5%) PHA 01/15/25 In Process 16:00 * Swallow Request ST 01/15/25 Transmitted 15:48 Pantoprazole PHA 01/16/25 In Process (Protonix) 10:00 *[facility] CONS 01/15/25 Transmitted -[place] 15:48 Electrocardigram EKG 01/15/25 Logged 15:48 Electrocardigram EKG 01/15/25 Logged 16:48 Basic Metabolic Panel LAB 01/16/25 Logged 12:00 Basic Metabolic Panel LAB 01/16/25 Logged 18:00 Basic Metabolic Panel LAB 01/17/25 Verified 00:00 Basic Metabolic Panel LAB 01/17/25 Verified 06:00 Basic Metabolic Panel LAB 01/17/25 Verified 12:00 Enoxaparin Sodium PHA 01/16/25 In Process (Lovenox) 10:00 Cefepime 1gm/ 50ml PHA 01/16/25 In Process (Maxipime 1gm/50ml) 10:00 Linezolid 600mg/300ml PHA 01/15/25 In Process (Zyvox) 22:00 Complete Blood Count LAB 01/17/25 Verified 05:00 Complete Blood Count LAB 01/18/25 Verified 05:00 Complete Blood Count LAB 01/19/25 Verified 05:00 Complete Blood Count LAB 01/20/25 Verified 05:00 Mrsa Screen AYANA 01/15/25 In Process 21:07 Consistent DIET 01/16/25 Transmitted Carb(Ccho)Diabetes Breakfast Free Water PHA 01/16/25 Logged 12:00 Insulin Lantus PHA 01/16/25 Logged (Glargine) (Lantus) 10:00 Glucose Blood PHA 01/16/25 Logged (Accu-Chek Comfort 12:00 Insulin R (Human) PHA 01/16/25 Logged (Insulin R) 12:00 Dextrose 50% Syringe PHA 01/16/25 Logged 08:45 Diphenhdramine PHA 01/16/25 Logged Injection (Benadryl 08:45 Morphine Sulfate PHA 01/16/25 Logged Injection 08:45 Hydrocodone-Acet PHA 01/16/25 Logged 5/325mg Tab (Searcy 08:45 Acetaminophen Tab Or PHA 01/16/25 Logged Cap (Tylenol Tablet 08:45 Ondansetron Hcl PHA 01/16/25 Logged (Zofran) 08:45 Docusate Sodium PHA 01/16/25 Logged Capsule (Colace 08:45 Albuterol Medneb PHA 01/16/25 Logged (Ventolin Medneb) 08:45 Ipratropium Medneb PHA 01/16/25 Logged (Atrovent Medneb) 08:45 Date of Service: Jan 16, 2025 Billing Provider: MARTIN SANCHEZ NP Common Visit Codes: [id number] CARE 30-74 MIN MARTIN SANCHEZ NP Jan 16, 2025 08:53
[2025-01-16] MEDS: INSULIN LANTUS (GLARGINE) 1 /0.01ml (100units/ml) SC SCH (10:00)
[2025-01-16] MEDS: PANTOPRAZOLE 40 MG/10 ML VIAL INJ IV SCH (11:01)
[2025-01-16] MEDS: ENOXAPARIN SOD 30 MG/0.3 ML SYRINGE SC SCH (11:02)
[2025-01-16] MEDS: ACCU-CHEK COMFORT CURVE STRIP VI SCH (12:00)
[2025-01-16] MEDS: FREE WATER PO SCH (12:00)
[2025-01-16] MEDS: InsuLIN REG 1unit/0.01ml Soln (100units/ml) SC SCH (13:30)
[2025-01-16 13:33] LABS: Anion Gap 17 (5-15); Carbon Dioxide 24 mmol/L (20-31)
[2025-01-16 13:38] LABS: BUN/Creatinine Ratio 17.2 (10.0-20.0)
[2025-01-16 13:43] LABS: Blood Urea Nitrogen 64 mg/dL (9-23); Calcium 8.2 mg/dL (8.7-10.4); Chloride 136 mmol/L (98-107); Glucose 156 mg/dL (74-106); Potassium 3.2 mmol/L (3.5-5.1); Sodium 177 mmol/L (136-145)
[2025-01-16] MEDS: CEFEPIME 1GM/ 50ML 50 ML IV SCH (13:46)
[2025-01-16] MEDS ORDERED: POTASSIUM CHLORIDE 40 MEQ, LIDOCAINE 1% (LOCAL ANESTH.) 4 ML in SODIUM CHL 0.9% 250 ML IV ONE (15:15)
[2025-01-16] MEDS: POTASSIUM CHL 20MEQ/100ML 100 ML IV SCH (15:38)
--- NOTE | 2025-01-16 16:41 | DVHINCON2 ---
Date of service: Jan 16, 2025 Reason for Consultation hypernatremia History of Present Illness 59 year old male limited hx a patient is altered. Patient brought from chronic care facility due to confusion Labs show Na > 170 and cr > 10 Allergies: Coded Allergies: NO KNOWN ALLERGIES (Unverified , 01/15/25) Current Medications Current Medications Medications (Trade) Dose Ordered Sig/Talha Route PRN Reason Start Time Stop Time Status Last Admin Pantoprazole Sodium (Protonix) 40 mg DAILY IV 01/16/25 10:00 01/16/25 11:01 Enoxaparin Sodium (Lovenox) 30 mg DAILY SC 01/16/25 10:00 01/16/25 11:02 Cefepime HCl 50 ml @ 12.5 mls/hr DAILY IV 01/16/25 10:00 01/16/25 13:46 Linezolid 300 ml @ 150 mls/hr Q12HR IV 01/15/25 22:00 01/16/25 11:02 Purified Water 200 ml Q6HR PO 01/16/25 12:00 Insulin Glargine (Lantus) 10 units DAILY@1000 SC 01/16/25 10:00 Diagnostic Test (Pha) (Accu-Chek Comfort Curve T) 1 strip Q6HR 01/16/25 12:00 01/16/25 18:18 Insulin Human Regular (InsuLIN R) Q6HR SC 01/16/25 12:00 01/16/25 18:21 Dextrose 50 ml UD PRN IV Blood Sugar LESS THAN 60 01/16/25 08:45 Diphenhydramine HCl (Benadryl Injection) 25 mg Q4HP PRN IV FOR ITCHING 01/16/25 08:45 Morphine Sulfate 1 mg Q4HPRN PRN IV SEVERE PAIN (7-10 PAIN SCALE) 01/16/25 08:45 Acetaminophen/ Hydrocodone Bitart ([place] 5/325MG Tab) 1 tab Q6HPRN PRN PO MODERATE PAIN (4-6 PAIN SCALE) 01/16/25 08:45 Acetaminophen (Tylenol Tablet Or Capsule) 500 mg Q8HP PRN PO PAIN SCALE 1-3 OR TEMP>100.4 01/16/25 08:45 Ondansetron HCl (Zofran) 4 mg Q6HP PRN IV NAUSEA / VOMITING 01/16/25 08:45 Docusate Sodium (Colace Capsule) 100 mg BID PRN PO FOR CONSTIPATION 01/16/25 08:45 Albuterol (Ventolin Medneb) 2.5 mg Q4HPRN PRN NEB SHORTNESS OF BREATH 01/16/25 08:45 Ipratropium [place] (Atrovent Medneb) 0.5 mg Q4HPRN PRN NEB SHORTNESS OF BREATH 01/16/25 08:45 Potassium Chloride 100 ml @ 50 mls/hr Q2H IV 01/16/25 14:00 01/16/25 19:59 DC 01/16/25 18:00 Mupirocin (Bactroban 2% Ointment) 1 applic BID EACHNOSTRI 01/16/25 22:00 01/21/25 21:59 Family History: Patient reports no known family medical history. Review of Systems AMS H&P Exam Vital Signs/I&O Vital Sign Date Time Temp Pulse Resp B/P (MAP) Pulse Ox O2 Delivery O2 Flow Rate FiO2 01/16/25 18:26 75 01/16/25 18:25 20 95 Room Air* 0 21 01/16/25 18:00 117/85 (96) 01/16/25 16:00 98.6 98.6 Intake and Output 01/15/25 01/16/25 19:00 07:00 Intake Total 4350 ml 1700 ml Output Total 2600 ml Balance 4350 ml -900 ml Intake Oral 0 ml IV Total 4350 ml 1700 ml Output Urine Total 2600 ml Physical Exam cachetic male confused trying to pull lines no edema Labs/Diagnostic Data Labs/Diagnostic Data Laboratory Tests Test 01/16/25 18:09 01/16/25 18:02 01/16/25 13:43 01/16/25 13:03 Range/Units POC Glucose 154 H 154 H 70-106 mg/dl Sodium Level 172 #*H 177 *H 136-145 mmol/L Potassium Level 3.2 L 3.2 L 3.5-5.1 mmol/L Chloride Level 134 H 136 H 98-107 mmol/L Carbon Dioxide Level 24 24 20-31 mmol/L Anion Gap 14 17 H 5-15 Blood Urea Nitrogen 49 #H 64 #H 9-23 mg/dL Creatinine 2.95 H 3.73 H 0.700-1.30 mg/dL Glomerular Filtration Rate Calc 23 18 >90 mL/min BUN/Creatinine Ratio 16.6 17.2 10.0-20.0 Serum Glucose 166 H 156 #H 74-106 mg/dL Calcium Level 8.2 L 8.2 L 8.7-10.4 mg/dL Magnesium Level 1.9 1.6-2.6 mg/dL Beta-Hydroxybutyric Acid 0.267 < 0.4 mmol/L Test 01/16/25 11:11 01/16/25 11:02 01/16/25 07:00 01/16/25 06:30 Range/Units POC Glucose 116 H 116 H 288 H 70-106 mg/dl White Blood Count 17.7 H 4.4-10.8 10^3/uL Red Blood Count 4.51 4.5-5.90 10^6/uL Hemoglobin 13.0 L 13.5-17.5 g/dL Hematocrit 41.8 41.0-53.0 % Mean Corpuscular Volume 92.5 80.0-100.0 fL Mean Corpuscular Hemoglobin 28.8 28.0-32.0 pg Mean Corpuscular Hemoglobin Concent 31.1 L 32.0-36.0 g/dL Red Cell Distribution Width 16.8 H 11.8-14.3 % Platelet Count 284 140-450 10^3/uL Mean Platelet Volume 9.4 6.9-10.8 fL Neutrophils (%) (Auto) 91.8 H 37.0-80.0 % Lymphocytes (%) (Auto) 5.0 L 10.0-50.0 % Monocytes (%) (Auto) 3.0 0.0-12.0 % Eosinophils (%) (Auto) 0.1 0.0-7.0 % Basophils (%) (Auto) 0.1 0.0-2.0 % Neutrophils # (Auto) 16.2 H 1.6-8.6 10 ^3/uL Lymphocytes # (Auto) 0.9 0.4-5.4 10 ^3/uL Monocytes # (Auto) 0.5 0-1.3 10 ^3/uL Eosinophils # (Auto) 0 0-0.8 10 ^3/uL Basophils # (Auto) 0 0-0.2 10 ^3/uL Nucleated Red Blood Cells 0.0 % Sodium Level 177 *H 136-145 mmol/L Potassium Level 3.8 3.5-5.1 mmol/L Chloride Level 137 H 98-107 mmol/L Carbon Dioxide Level 20 20-31 mmol/L Anion Gap 20 H 5-15 Blood Urea Nitrogen 85 *H 9-23 mg/dL Creatinine 5.35 H 0.700-1.30 mg/dL Glomerular Filtration Rate Calc 11 >90 mL/min BUN/Creatinine Ratio 15.9 10.0-20.0 Serum Glucose 295 H 74-106 mg/dL Hemoglobin A1c 5.4 <5.7 % A1C Calcium Level 8.0 L 8.7-10.4 mg/dL Test 01/16/25 00:27 01/15/25 21:45 01/15/25 17:55 01/15/25 15:13 Range/Units Sodium Level 179 #*H 186 *H 136-145 mmol/L Potassium Level 4.2 4.9 4.9 3.5-5.1 mmol/L Chloride Level 139 H 142 H 98-107 mmol/L Carbon Dioxide Level 21 17 L 20-31 mmol/L Anion Gap 19 H 27 H 5-15 Blood Urea Nitrogen 90 #*H 130 #*H 9-23 mg/dL Creatinine 7.09 #H 9.50 #H 0.700-1.30 mg/dL Glomerular Filtration Rate Calc 8 6 >90 mL/min BUN/Creatinine Ratio 12.7 13.7 10.0-20.0 Serum Glucose 227 H 168 H 74-106 mg/dL Calcium Level 7.6 L 8.4 L 8.7-10.4 mg/dL POC Glucose 81 70-106 mg/dl Troponin I High Sensitivity 91 *H </=54 ng/L Test 01/15/25 13:10 01/15/25 13:03 01/15/25 12:23 01/15/25 12:00 Range/Units Lactic Acid Level 5.7 *H 0.4-2.0 mmol/L Troponin I High Sensitivity 82 *H </=54 ng/L POC Glucose 125 H 70-106 mg/dl Urine Color Yellow Yellow Urine Clarity Clear Clear Urine pH 5.5 5.0-9.0 Urine Specific [place] 1.018 1.001-1.035 Urine Protein Negative Negative Urine Ketones Negative Negative Urine Blood 1+ H Negative /uL Urine Nitrite Negative Negative Urine Bilirubin Negative Negative Urine Urobilinogen Normal Negative mg/dL Urine Leukocyte Esterase Negative Negative /uL Urine RBC 17 0 - 3 /hpf Urine Microscopic WBC 4 H 0-3 /HPF Urine Squamous Epithelial Cells None seen <5 /hpf Urine Bacteria None seen None Seen /hpf Urine Glucose Normal Normal mg/dL Test 01/15/25 11:15 Range/Units White Blood Count 16.3 H 4.4-10.8 10^3/uL Red Blood Count 4.99 4.5-5.90 10^6/uL Hemoglobin 14.4 13.5-17.5 g/dL Hematocrit 45.4 41.0-53.0 % Mean Corpuscular Volume 90.9 80.0-100.0 fL Mean Corpuscular Hemoglobin 28.8 28.0-32.0 pg Mean Corpuscular Hemoglobin Concent 31.7 L 32.0-36.0 g/dL Red Cell Distribution Width 17.1 H 11.8-14.3 % Platelet Count 372 140-450 10^3/uL Mean Platelet Volume 9.3 6.9-10.8 fL Neutrophils (%) (Auto) 86.7 H 37.0-80.0 % Lymphocytes (%) (Auto) 6.6 L 10.0-50.0 % Monocytes (%) (Auto) 6.6 0.0-12.0 % Eosinophils (%) (Auto) 0.0 0.0-7.0 % Basophils (%) (Auto) 0.1 0.0-2.0 % Neutrophils # (Auto) 14.1 H 1.6-8.6 10 ^3/uL Lymphocytes # (Auto) 1.1 0.4-5.4 10 ^3/uL Monocytes # (Auto) 1.1 0-1.3 10 ^3/uL Eosinophils # (Auto) 0 0-0.8 10 ^3/uL Basophils # (Auto) 0 0-0.2 10 ^3/uL Nucleated Red Blood Cells 0.0 % Sodium Level 184 *H 136-145 mmol/L Potassium Level 6.1 *H 3.5-5.1 mmol/L Chloride Level 137 H 98-107 mmol/L Carbon Dioxide Level 19 L 20-31 mmol/L Anion Gap 28 H 5-15 Blood Urea Nitrogen 153 *H 9-23 mg/dL Creatinine 12.95 *H 0.700-1.30 mg/dL Glomerular Filtration Rate Calc 4 >90 mL/min BUN/Creatinine Ratio 11.8 10.0-20.0 Serum Glucose 144 H 74-106 mg/dL Lactic Acid Level 4.9 *H 0.4-2.0 mmol/L Calcium Level 9.3 8.7-10.4 mg/dL Troponin I High Sensitivity 97 *H </=54 ng/L Microbiology Date/Time Source Procedure Growth Status 01/15/25 21:00 Nose MRSA Screen - Final Methicillin Resistant S.aureus Complete Assessment 59 year old M admitted for AMS found to have MARK and severe hypernatremia Acute kidney injury prerenal due to volume depletion severe hypernatremia due to lack of free water Dementia sepsis scabies hypokalemia protein calorie malnutrition Continue with hypotonic fluids replace potassium IV check Mg level supportive care nutrition support strict I/O defer management of psy conditions and infectious w/u to primary medical team mejia catheter has improved UOP, no medical indication for stat HD at this time given improvement in UOP Plan discussed with: Other LESLEE MADISON MD Jan 16, 2025 16:41
[2025-01-16 18:21] LABS: Anion Gap 14 (5-15); Carbon Dioxide 24 mmol/L (20-31)
[2025-01-16 18:26] LABS: BUN/Creatinine Ratio 16.6 (10.0-20.0)
[2025-01-16 18:28] LABS: Blood Urea Nitrogen 49 mg/dL (9-23); Calcium 8.2 mg/dL (8.7-10.4); Chloride 134 mmol/L (98-107); Glucose 166 mg/dL (74-106); Potassium 3.2 mmol/L (3.5-5.1)
[2025-01-16 18:30] LABS: Sodium 172 mmol/L (136-145)
[2025-01-16] MEDS: MUPIROCIN 2% OINT 15gm or 22gm FOR MRSA NARES EACHNOSTRI SCH (21:36)
[2025-01-16] MEDS: MAGNESIUM SULFATE 1GM/100ML 100 ML IV ONE (21:50)
[2025-01-16] MEDS: LORazepam 2MG/ML-1ML VIAL IV ONE ×2 (22:34→23:50)
[2025-01-16] MEDS: LORazepam 2MG/ML-1ML VIAL ONE (22:34)
[2025-01-16] MEDS ORDERED: HALOPERIDOL LACTATE 5 MG/ML INJ VIAL IM ONE (23:30)
[2025-01-17] VITALS (71 sets, daily range): BP systolic 112–162; BP diastolic 54–111; PULSE 62–108; RESP 10–29; TEMP 97.9–99.1; O2SAT 72–99
[2025-01-17 01:14] LABS: Potassium 3.6 mmol/L (3.5-5.1)
[2025-01-17 01:15] LABS: Anion Gap 12 (5-15); Carbon Dioxide 22 mmol/L (20-31)
[2025-01-17 01:20] LABS: BUN/Creatinine Ratio 15.7 (10.0-20.0)
[2025-01-17 01:26] LABS: Blood Urea Nitrogen 34 mg/dL (9-23); Calcium 7.8 mg/dL (8.7-10.4); Chloride 132 mmol/L (98-107); Glucose 211 mg/dL (74-106)
[2025-01-17 01:27] LABS: Sodium 166 mmol/L (136-145)
[2025-01-17 04:23] LABS: Basophils # (auto) 0 10 ^3/uL (0-0.2); Basophils % (auto) 0.1 % (0.0-2.0); Eosinophils # (auto) 0.2 10 ^3/uL (0-0.8); Eosinophils % (auto) 1.6 % (0.0-7.0); Hematocrit 41.7 % (41.0-53.0); Hemoglobin 13.3 g/dL (13.5-17.5); Lymphocytes % (auto) 7.2 % (10.0-50.0); Mean Corpuscular Hemoglobin 28.8 pg (28.0-32.0); Mean Corpuscular Hgb Conc. 31.8 g/dL (32.0-36.0); Mean Corpuscular Volume 90.5 fL (80.0-100.0); Monocytes # (auto) 0.7 10 ^3/uL (0-1.3); Monocytes % (auto) 4.9 % (0.0-12.0); Neutrophils # (auto) 12.4 10 ^3/uL (1.6-8.6); Neutrophils % (auto) 86.2 % (37.0-80.0); Nucleated Red Blood Cells % 0.1 %; Platelet Count (auto) 222 10^3/uL (140-450); Red Blood Cells 4.61 10^6/uL (4.5-5.90); Red Cell Distribution Width 16.3 % (11.8-14.3); White Blood Cell 14.4 10^3/uL (4.4-10.8)
[2025-01-17 04:34] LABS: Potassium 3.8 mmol/L (3.5-5.1)
[2025-01-17 04:36] LABS: Anion Gap 14 (5-15); Carbon Dioxide 20 mmol/L (20-31)
[2025-01-17 04:41] LABS: BUN/Creatinine Ratio 14.9 (10.0-20.0)
[2025-01-17 04:44] LABS: Blood Urea Nitrogen 29 mg/dL (9-23); Calcium 7.7 mg/dL (8.7-10.4); Chloride 131 mmol/L (98-107); Glucose 198 mg/dL (74-106); Phosphorus 1.6 mg/dL (2.4-5.1)
[2025-01-17 04:45] LABS: Sodium 165 mmol/L (136-145)
--- NOTE | 2025-01-17 09:55 | DVH ---
EXAM: XY CHEST XRAY 1 VIEW Indication: pain Technique: Single frontal view of the chest was obtained Comparison: XY CHEST PORTABLE on DOS: 01/15/25 FINDINGS: Lines and Tubes: None Lungs: No focal consolidation. Pleura: No effusion. No pneumothorax. Cardiomediastinal contours: Unremarkable Bones: No acute osseous abnormality. IMPRESSION: No acute cardiopulmonary disease.
[2025-01-17] MEDS: POTASSIUM PHOSPHATE 22 MEQ in SODIUM CHL 0.9% 100 ML IV ONE (10:35)
[2025-01-17] MEDS ORDERED: POTASSIUM PHOSPHATE 22 MEQ in SODIUM CHL 0.9% 100 ML IV ONE (10:45)
--- NOTE | 2025-01-17 10:45 | DVHPN2 ---
Subjective Patient denies any symptoms Reviewed: Care Plan, H&P, Labs Changes from previous H/P or p: No Changes General: Per HPI Objective Vitals Vital Signs Date Time Temp Pulse Resp B/P (MAP) Pulse Ox O2 Delivery O2 Flow Rate FiO2 01/17/25 06:45 88 22 137/85 (102) 72 01/17/25 06:00 Room Air* 0 21 01/17/25 02:00 97.9 97.9 Intake/Output Intake and Output 01/17/25 07:00 Intake Total 4000.0 ml Output Total 3650 ml Balance 350.0 ml IV Total 4000.0 ml Output Urine Total 3650 ml # Bowel Movements 2 General Appearance: Alert, Cooperative, moderate distress HEENT: Atraumatic, PERRLA Lungs: Normal air movement Cardiovascular: Normal S1, Normal S2 Neuro: Cranial nerves 3-12 NL Skin: Wounds (See nurse notes and pictures) Psych/Mental Status: Mental status NL, Mood NL Medications Current Medications Medications Dose Ordered Sig/Talha Route Start Time Stop Time Status Last Admin Dose Admin Nitroglycerin 0.4 mg Q5MINP PRN SL 01/15/25 16:00 Morphine Sulfate 2 mg Q30M PRN IV 01/15/25 16:00 Dextrose 1,000 ml @ 200 mls/hr Q5H IV 01/15/25 16:00 01/17/25 07:40 200 MLS/HR Pantoprazole Sodium 40 mg DAILY IV 01/16/25 10:00 01/16/25 11:01 40 MG Enoxaparin Sodium 30 mg DAILY SC 01/16/25 10:00 01/16/25 11:02 30 MG Cefepime HCl 50 ml @ 12.5 mls/hr DAILY IV 01/16/25 10:00 01/16/25 13:46 12.5 MLS/HR Linezolid 300 ml @ 150 mls/hr Q12HR IV 01/15/25 22:00 01/16/25 21:36 150 MLS/HR Purified Water 200 ml Q6HR PO 01/16/25 12:00 Insulin Glargine 10 units DAILY@1000 SC 01/16/25 10:00 Diagnostic Test (Pha) 1 strip Q6HR 01/16/25 12:00 01/17/25 05:39 1 STRIP Insulin Human Regular Q6HR SC 01/16/25 12:00 01/17/25 05:38 3 UNITS Dextrose 50 ml UD PRN IV 01/16/25 08:45 Diphenhydramine HCl 25 mg Q4HP PRN IV 01/16/25 08:45 Morphine Sulfate 1 mg Q4HPRN PRN IV 01/16/25 08:45 Acetaminophen/ Hydrocodone Bitart 1 tab Q6HPRN PRN PO 01/16/25 08:45 Acetaminophen 500 mg Q8HP PRN PO 01/16/25 08:45 Ondansetron HCl 4 mg Q6HP PRN IV 01/16/25 08:45 Docusate Sodium 100 mg BID PRN PO 01/16/25 08:45 Albuterol 2.5 mg Q4HPRN PRN NEB 01/16/25 08:45 Ipratropium [place] 0.5 mg Q4HPRN PRN NEB 01/16/25 08:45 Mupirocin 1 applic BID EACHNOSTRI 01/16/25 22:00 01/21/25 21:59 01/16/25 21:36 1 APPLIC Laboratory Results Laboratory Tests 01/17/25 04:05 Chemistry Test 01/16/25 13:03 01/16/25 18:02 01/17/25 00:53 01/17/25 04:05 Calcium Level 8.2 mg/dL (8.7-10.4) L 8.2 mg/dL (8.7-10.4) L 7.8 mg/dL (8.7-10.4) L 7.7 mg/dL (8.7-10.4) L Magnesium Level 1.9 mg/dL (1.6-2.6) Phosphorus Level 1.6 mg/dL (2.4-5.1) L Urinalysis Test 01/15/25 12:00 Urine Color Yellow (Yellow) Urine Clarity Clear (Clear) Urine pH 5.5 (5.0-9.0) Urine Specific [place] 1.018 (1.001-1.035) Urine Protein Negative (Negative) Urine Ketones Negative (Negative) Urine Blood 1+ /uL (Negative) H Urine Nitrite Negative (Negative) Urine Bilirubin Negative (Negative) Urine Urobilinogen Normal mg/dL (Negative) Urine Leukocyte Esterase Negative /uL (Negative) Urine RBC 17 /hpf (0 - 3) Urine Microscopic WBC 4 /HPF (0-3) H Urine Squamous Epithelial Cells None seen /hpf (<5) Urine Bacteria None seen /hpf (None Seen) Urine Glucose Normal mg/dL (Normal) Microbiology Microbiology Date/Time Source Procedure Growth Status 01/15/25 21:00 Nose MRSA Screen - Final Methicillin Resistant S.aureus Complete 01/15/25 13:10 Blood Blood Culture - Preliminary NO GROWTH AFTER 24 HOURS OF INCUBATION. Resulted 01/15/25 12:00 Urine - [place] Urine Culture - Preliminary Resulted Labs and/or images reviewed: Labs reviewed by me, Image(s) reviewed by me Assessment/Plan Assessment/Plan Impression: -metabolic encephalopathy probably secondary to severe dehydration -hyponatremia -acute kidney injury -hyperkalemia -NSTEMI, probably type 2 -history of primary hypertension -history of HIV -diabetes mellitus -cachexia -sepsis -scabies Plan: Events: Sodium continues to improve. Potassium repleted. Renal function improving dramatically. Hypophosphatemia noted. Neurologically, patient continues to have ALOC. -continue regular insulin sliding scale -K-Phos rider -check CD4/CD8 count -continue aggressive volume resuscitation with D5W at 200 mL/hour -attempt diet, free water 200 mL q.6 hours -serial BMP q.6 hours -empiric antibiotics: Cefepime, Zyvox -nephrology consultation -hold home antihypertensives, antidiabetic meds, antipsychotics -espino cultures: Pending , positive for MRSA in the nares -repeat labs in a.m. Critical care time spent with patient discussing and formulating plan of care: 40 minutes. This does not include time spent performing procedures. This medical document was created using an electronic medical record system with [employer] dictation system. Although this document has been carefully reviewed, there may still be some phonetic and typographical errors. These areas are purely typographical due to imperfections of the software programs, and do not reflect any compromise in the patient's medical care. Plan discussed with: Patient, Other (RN) My Orders Orders - MARTIN SANCHEZ MOLECULAR BIOLOGY SCIENTIST Procedure Category Date Status Time Mupirocin 2% Oint PHA 01/16/25 In Process Mrsa Nares (Bactroban 22:00 * Dietary Consult CONS 01/16/25 Transmitted 17:27 Cleanse Wound With NAIDA 01/16/25 In Process Wound Clean 16:50 Chest Xray 1 View XY 01/17/25 Resulted 08:24 Insert Midline ORDERS 01/17/25 Transmitted 09:02 Cd4/Cd8 Ratio Profile LAB 01/17/25 Transmitted 12:00 Potassium Phosphate PHA 01/17/25 Transmitted 10:45 Date of Service: Jan 17, 2025 Billing Provider: MARTIN SANCHEZ NP Common Visit Codes: [id number] CARE 30-74 MIN MARTIN SANCHEZ NP Jan 17, 2025 10:45
[2025-01-17 12:43] LABS: Potassium 4.2 mmol/L (3.5-5.1)
[2025-01-17 12:44] LABS: Anion Gap 12 (5-15); Carbon Dioxide 21 mmol/L (20-31)
[2025-01-17 12:49] LABS: BUN/Creatinine Ratio 15.7 (10.0-20.0); Blood Urea Nitrogen 22 mg/dL (9-23)
[2025-01-17 12:51] LABS: Calcium 7.7 mg/dL (8.7-10.4); Chloride 128 mmol/L (98-107); Glucose 113 mg/dL (74-106)
[2025-01-17 12:52] LABS: Sodium 161 mmol/L (136-145)
--- NOTE | 2025-01-17 16:25 | DVHPN2 ---
Progress Note Date Seen: Jan 17, 2025 Medical Necessity Reason Pt with a Central, PICC or Fol: Yes The following are medically ne: [place] Catheter Subjective Patient reports: Feels better Review of Systems: Deferred Objective vital signs Vital Sign Date Time Temp Pulse Resp B/P (MAP) Pulse Ox O2 Delivery O2 Flow Rate FiO2 01/17/25 16:00 80 01/17/25 16:00 13 90 Room Air* 0 21 01/17/25 15:15 136/67 (90) 01/17/25 02:00 97.9 97.9 Total Intake and Output 01/16/25 01/16/25 01/17/25 15:00 23:00 07:00 Intake Total 1925.0 ml 1075.0 ml 1200 ml Output Total 1000 ml 1600 ml 1050 ml Balance 925.0 ml -525.0 ml 150 ml medications Current Medications Medications Dose Ordered Sig/Talha Route Start Time Stop Time Status Last Admin Dose Admin Nitroglycerin 0.4 mg Q5MINP PRN SL 01/15/25 16:00 Morphine Sulfate 2 mg Q30M PRN IV 01/15/25 16:00 Dextrose 1,000 ml @ 200 mls/hr Q5H IV 01/15/25 16:00 01/17/25 15:45 200 MLS/HR Pantoprazole Sodium 40 mg DAILY IV 01/16/25 10:00 01/17/25 10:32 40 MG Enoxaparin Sodium 30 mg DAILY SC 01/16/25 10:00 01/17/25 10:33 30 MG Cefepime HCl 50 ml @ 12.5 mls/hr DAILY IV 01/16/25 10:00 01/17/25 15:51 12.5 MLS/HR Linezolid 300 ml @ 150 mls/hr Q12HR IV 01/15/25 22:00 01/17/25 13:40 150 MLS/HR Purified Water 200 ml Q6HR PO 01/16/25 12:00 Insulin Glargine 10 units DAILY@1000 SC 01/16/25 10:00 01/17/25 10:39 10 UNITS Diagnostic Test (Pha) 1 strip Q6HR 01/16/25 12:00 01/17/25 05:39 1 STRIP Insulin Human Regular Q6HR SC 01/16/25 12:00 01/17/25 05:38 3 UNITS Dextrose 50 ml UD PRN IV 01/16/25 08:45 Diphenhydramine HCl 25 mg Q4HP PRN IV 01/16/25 08:45 Morphine Sulfate 1 mg Q4HPRN PRN IV 01/16/25 08:45 Acetaminophen/ Hydrocodone Bitart 1 tab Q6HPRN PRN PO 01/16/25 08:45 Acetaminophen 500 mg Q8HP PRN PO 01/16/25 08:45 Ondansetron HCl 4 mg Q6HP PRN IV 01/16/25 08:45 Docusate Sodium 100 mg BID PRN PO 01/16/25 08:45 Albuterol 2.5 mg Q4HPRN PRN NEB 01/16/25 08:45 Ipratropium [place] 0.5 mg Q4HPRN PRN NEB 01/16/25 08:45 Mupirocin 1 applic BID EACHNOSTRI 01/16/25 22:00 01/21/25 21:59 01/17/25 10:33 1 APPLIC Examination: GENERAL:Abnormal, CVS:Abnormal, SKIN:Abnormal laboratory and microbiology Laboratory Tests 01/17/25 12:04 Test 01/17/25 12:04 Range/Units Serum Glucose 113 H 74-106 mg/dL Microbiology Date/Time Source Procedure Growth Status 01/15/25 21:00 Nose MRSA Screen - Final Methicillin Resistant S.aureus Complete 01/15/25 13:10 Blood Blood Culture - Preliminary NO GROWTH AFTER 48 HOURS OF INCUBATION. Resulted 01/15/25 12:00 Urine - [place] Urine Culture - Final Complete Problem List/Assessment/Plan Problem List/Assessment/Plan 59 year old M admitted for AMS found to have MARK and severe hypernatremia Acute kidney injury prerenal due to volume depletion severe hypernatremia due to lack of free water Dementia sepsis scabies hypokalemia protein calorie malnutrition MARK is improving Continue with hypotonic fluids replace potassium IV check Mg level supportive care nutrition support strict I/O defer management of psy conditions and infectious w/u to primary medical team mejia catheter has improved UOP, no medical indication for stat HD at this time given improvement in UOP Plan discussed with: Patient My Orders My Orders Orders - LESLEE MDAISON MD Procedure Category Date Status Time Communication Order ORDERS 01/16/25 Transmitted 18:41 Dietary Evaluation Review Recommendations by RD: Increase Calorie Intake, Protein Supplementation Comments: Pt meets criteria for Severe Protein-Calorie Malnutrition in the setting of chronic illness based on moderate muscle wasting, and moderate fat depletion. Nutrition Recommendation: 1) TPN if pt cannot tolerate PO 2) Cosme 1 pk BID, MVI w/ minerals 1 tab daily, VitC 500mg BID, Zinc sulfate 220mg BID x 10 days for pressure ulcer wound healing 3) Ensure High Protein 240ml TID if pt can tolerate PO 4) Monitor NPO status/PO intake, lab values, weight trend, and I/O Expected Outcomes/Goals: To maintain/gain weight TO meet EER >75% within 7 days PU to improve Fu 2-3 days Body Fat Depletion (Severe): Mod to Severe Depletion Muscle Mass (Severe): Mod to Severe Depletion Protein Calorie Malnutrition: Severe Is there a minimum of two crit: Yes LESLEE MADISON MD Jan 17, 2025 16:24
[2025-01-18] VITALS (34 sets, daily range): BP systolic 93–142; BP diastolic 51–77; PULSE 53–98; RESP 10–27; TEMP 97.8–99.9; O2SAT 96–100
[2025-01-18 04:20] LABS: Basophils # (auto) 0 10 ^3/uL (0-0.2); Basophils % (auto) 0.1 % (0.0-2.0); Eosinophils # (auto) 0.7 10 ^3/uL (0-0.8); Eosinophils % (auto) 6.1 % (0.0-7.0); Hemoglobin 12.6 g/dL (13.5-17.5); Lymphocytes % (auto) 8.9 % (10.0-50.0); Mean Corpuscular Hemoglobin 28.8 pg (28.0-32.0); Mean Corpuscular Hgb Conc. 32.4 g/dL (32.0-36.0); Mean Corpuscular Volume 88.9 fL (80.0-100.0); Monocytes # (auto) 0.6 10 ^3/uL (0-1.3); Monocytes % (auto) 5.1 % (0.0-12.0); Neutrophils # (auto) 9.1 10 ^3/uL (1.6-8.6); Neutrophils % (auto) 79.8 % (37.0-80.0); Nucleated Red Blood Cells % 0.1 %; Platelet Count (auto) 209 10^3/uL (140-450); Red Blood Cells 4.39 10^6/uL (4.5-5.90); Red Cell Distribution Width 15.9 % (11.8-14.3); White Blood Cell 11.5 10^3/uL (4.4-10.8)
[2025-01-18 04:31] LABS: Potassium 3.5 mmol/L (3.5-5.1); Sodium 145 mmol/L (136-145)
[2025-01-18 04:32] LABS: Anion Gap 13 (5-15)
[2025-01-18 04:34] LABS: Calcium 7.4 mg/dL (8.7-10.4); Carbon Dioxide 17 mmol/L (20-31); Chloride 115 mmol/L (98-107)
[2025-01-18 04:37] LABS: Blood Urea Nitrogen 11 mg/dL (9-23); Glucose 92 mg/dL (74-106)
[2025-01-18 04:38] LABS: Magnesium 1.7 mg/dL (1.6-2.6)
[2025-01-18 04:42] LABS: Phosphorus 2.2 mg/dL (2.4-5.1)
[2025-01-18 05:07] LABS: Basos 0 % (Not Estab.); Eos 4 % (Not Estab.); Eos (Absolute) 0.6 x10E3/uL (0.0-0.4); Hematocrit 42.3 % (37.5-51.0); Hemoglobin 13.2 g/dL (13.0-17.7); Immature Granulocytes (Abs) 0.1 x10E3/uL (0.0-0.1); Lymphs 8 % (Not Estab.); Lymphs (Absolute) 1.3 x10E3/uL (0.7-3.1); MCHC 31.2 g/dL (31.5-35.7); MCV 93 fL (79-97); Monocytes 5 % (Not Estab.); Monocytes (Absolute) 0.7 x10E3/uL (0.1-0.9); Neutrophils 82 % (Not Estab.); Neutrophils (Absolute) 13.1 x10E3/uL (1.4-7.0); Platelets 245 x10E3/uL (150-450); RBC 4.55 x10E6/uL (4.14-5.80); RDW 13.8 % (11.6-15.4); WBC 15.8 x10E3/uL (3.4-10.8)
[2025-01-18] MEDS: D5W 5% 1,000 ML IV SCH (05:30)
--- NOTE | 2025-01-18 09:06 | DVHPN2 ---
Subjective Patient more alert today. Reviewed: Care Plan, H&P, Labs Changes from previous H/P or p: Changes General: Per HPI Objective Vitals Vital Signs Date Time Temp Pulse Resp B/P (MAP) Pulse Ox O2 Delivery O2 Flow Rate FiO2 01/18/25 08:30 78 18 131/69 (89) 100 01/18/25 08:00 99.8 99.8 01/18/25 06:00 Room Air* 0 21 Intake/Output Intake and Output 01/18/25 07:00 Intake Total 4534.00 ml Output Total 2750 ml Balance 1784.00 ml Intake Oral 0 ml IV Total 4534.00 ml Output Urine Total 2750 ml General Appearance: Alert, Cooperative, moderate distress HEENT: Atraumatic, PERRLA Lungs: Normal air movement Cardiovascular: Normal S1, Normal S2 Neuro: Cranial nerves 3-12 NL Skin: Wounds (See nurse notes and pictures) Psych/Mental Status: Mental status NL, Mood NL Medications Current Medications Medications Dose Ordered Sig/Talha Route Start Time Stop Time Status Last Admin Dose Admin Nitroglycerin 0.4 mg Q5MINP PRN SL 01/15/25 16:00 Morphine Sulfate 2 mg Q30M PRN IV 01/15/25 16:00 Pantoprazole Sodium 40 mg DAILY IV 01/16/25 10:00 01/17/25 10:32 40 MG Enoxaparin Sodium 30 mg DAILY SC 01/16/25 10:00 01/17/25 10:33 30 MG Cefepime HCl 50 ml @ 12.5 mls/hr DAILY IV 01/16/25 10:00 01/17/25 15:51 12.5 MLS/HR Linezolid 300 ml @ 150 mls/hr Q12HR IV 01/15/25 22:00 01/17/25 21:37 150 MLS/HR Diagnostic Test (Pha) 1 strip Q6HR 01/16/25 12:00 01/18/25 06:28 1 STRIP Insulin Human Regular Q6HR SC 01/16/25 12:00 01/18/25 00:45 6 UNITS Dextrose 50 ml UD PRN IV 01/16/25 08:45 Diphenhydramine HCl 25 mg Q4HP PRN IV 01/16/25 08:45 Morphine Sulfate 1 mg Q4HPRN PRN IV 01/16/25 08:45 Acetaminophen/ Hydrocodone Bitart 1 tab Q6HPRN PRN PO 01/16/25 08:45 Acetaminophen 500 mg Q8HP PRN PO 01/16/25 08:45 Ondansetron HCl 4 mg Q6HP PRN IV 01/16/25 08:45 Albuterol 2.5 mg Q4HPRN PRN NEB 01/16/25 08:45 Ipratropium [place] 0.5 mg Q4HPRN PRN NEB 01/16/25 08:45 Mupirocin 1 applic BID EACHNOSTRI 01/16/25 22:00 01/21/25 21:59 01/17/25 21:37 1 APPLIC Sodium Chloride 1,000 ml @ 75 mls/hr [id number] IV 01/18/25 08:30 Laboratory Results Laboratory Tests 01/18/25 04:08 Chemistry Test 01/17/25 12:04 01/18/25 04:08 Calcium Level 7.7 mg/dL (8.7-10.4) L 7.4 mg/dL (8.7-10.4) L Magnesium Level 1.7 mg/dL (1.6-2.6) Phosphorus Level 2.2 mg/dL (2.4-5.1) L Urinalysis Test 01/15/25 12:00 Urine Color Yellow (Yellow) Urine Clarity Clear (Clear) Urine pH 5.5 (5.0-9.0) Urine Specific [place] 1.018 (1.001-1.035) Urine Protein Negative (Negative) Urine Ketones Negative (Negative) Urine Blood 1+ /uL (Negative) H Urine Nitrite Negative (Negative) Urine Bilirubin Negative (Negative) Urine Urobilinogen Normal mg/dL (Negative) Urine Leukocyte Esterase Negative /uL (Negative) Urine RBC 17 /hpf (0 - 3) Urine Microscopic WBC 4 /HPF (0-3) H Urine Squamous Epithelial Cells None seen /hpf (<5) Urine Bacteria None seen /hpf (None Seen) Urine Glucose Normal mg/dL (Normal) Microbiology Microbiology Date/Time Source Procedure Growth Status 01/15/25 21:00 Nose MRSA Screen - Final Methicillin Resistant S.aureus Complete 01/15/25 13:10 Blood Blood Culture - Preliminary NO GROWTH AFTER 48 HOURS OF INCUBATION. Resulted 01/15/25 12:00 Urine - [place] Urine Culture - Final Complete Labs and/or images reviewed: Labs reviewed by me, Image(s) reviewed by me Assessment/Plan Assessment/Plan Impression: -metabolic encephalopathy probably secondary to severe dehydration -hyponatremia -acute kidney injury -hyperkalemia -NSTEMI, probably type 2 -history of primary hypertension -history of HIV -diabetes mellitus -cachexia -sepsis -scabies Plan: Events: Sodium within normal limits. Patient neurologically improving. Attempt to feed patient, takeoff mittens. Change IV fluids -continue regular insulin sliding scale -0.45 NS at 75 mL/hour -attempt diet, free water 200 mL q.6 hours -serial BMP q.6 hours -deescalate antibiotics: Stop Zyvox, continue cefepime -nephrology consultation -hold home antihypertensives, antidiabetic meds, antipsychotics -espino cultures: No growth other than MRSA in the nares. -repeat labs in a.m. Critical care time spent with patient discussing and formulating plan of care: 40 minutes. This does not include time spent performing procedures. This medical document was created using an electronic medical record system with [employer] dictation system. Although this document has been carefully reviewed, there may still be some phonetic and typographical errors. These areas are purely typographical due to imperfections of the software programs, and do not reflect any compromise in the patient's medical care. Plan discussed with: Patient, Other (RN) My Orders Orders - MARTIN SANCHEZ NP Procedure Category Date Status Time Insert Midline ORDERS 01/17/25 Transmitted 09:02 Cd4/Cd8 Ratio Profile LAB 01/17/25 In Process 12:00 Notify Provider NOTICE 01/17/25 Transmitted Malnutrition 11:13 Increase Calorie NOURISH 01/17/25 Transmitted Intake 11:13 Sod Chl 0.45% (Sodium PHA 01/18/25 In Process Chloride 0.45% Via 08:30 Transfer Orders XFER 01/18/25 Transmitted 08:33 Date of Service: Jan 18, 2025 Billing Provider: MARTIN SANCHEZ NP Common Visit Codes: [id number] INP/OBS CARE(HIGH) MARTIN SANCHEZ NP Jan 18, 2025 09:06
[2025-01-18] MEDS ORDERED: CITALOPRAM HYDROBR 20 MG TAB PO SCH (10:00)
[2025-01-18] MEDS: SOD CHL 0.45% 1,000 ML IV SCH (10:02)
[2025-01-18] MEDS: DEXTROSE (50%) 50ML SYRG IV PRN (12:04)
[2025-01-18 12:07] LABS: % CD 4 Pos Lymph 33.1 % (30.8-58.5); % CD 8 Pos Lymph 41.3 % (12.0-35.5); Absolute CD 4 Helper 430 /uL (359-1519)
--- NOTE | 2025-01-18 12:34 | DVHPN2 ---
Progress Note Date Seen: Jan 18, 2025 Medical Necessity Reason Pt with a Central, PICC or Fol: Yes The following are medically ne: [place] Catheter Objective vital signs Vital Sign Date Time Temp Pulse Resp B/P (MAP) Pulse Ox O2 Delivery O2 Flow Rate FiO2 01/18/25 12:00 99.5 67 11 110/64 (79) 98 99.5 01/18/25 12:00 Room Air* 0 21 Total Intake and Output 01/17/25 01/17/25 01/18/25 15:00 23:00 07:00 Intake Total 1449.25 ml 2084.75 ml 1000 ml Output Total 1300 ml 1450 ml Balance 1449.25 ml 784.75 ml -450 ml medications Current Medications Medications Dose Ordered Sig/Talha Route Start Time Stop Time Status Last Admin Dose Admin Nitroglycerin 0.4 mg Q5MINP PRN SL 01/15/25 16:00 Morphine Sulfate 2 mg Q30M PRN IV 01/15/25 16:00 Pantoprazole Sodium 40 mg DAILY IV 01/16/25 10:00 01/18/25 10:03 40 MG Enoxaparin Sodium 30 mg DAILY SC 01/16/25 10:00 01/18/25 10:04 30 MG Cefepime HCl 50 ml @ 12.5 mls/hr DAILY IV 01/16/25 10:00 01/18/25 10:03 12.5 MLS/HR Diagnostic Test (Pha) 1 strip Q6HR 01/16/25 12:00 01/18/25 12:04 1 STRIP Insulin Human Regular Q6HR SC 01/16/25 12:00 01/18/25 00:45 6 UNITS Dextrose 50 ml UD PRN IV 01/16/25 08:45 01/18/25 12:04 50 ML Diphenhydramine HCl 25 mg Q4HP PRN IV 01/16/25 08:45 Morphine Sulfate 1 mg Q4HPRN PRN IV 01/16/25 08:45 Acetaminophen/ Hydrocodone Bitart 1 tab Q6HPRN PRN PO 01/16/25 08:45 Acetaminophen 500 mg Q8HP PRN PO 01/16/25 08:45 Ondansetron HCl 4 mg Q6HP PRN IV 01/16/25 08:45 Albuterol 2.5 mg Q4HPRN PRN NEB 01/16/25 08:45 Ipratropium [place] 0.5 mg Q4HPRN PRN NEB 01/16/25 08:45 Mupirocin 1 applic BID EACHNOSTRI 01/16/25 22:00 01/21/25 21:59 01/18/25 10:17 1 APPLIC Sodium Chloride 1,000 ml @ 75 mls/hr [id number] IV 01/18/25 08:30 01/18/25 10:02 75 MLS/HR Examination: GENERAL:Abnormal, CVS:Normal laboratory and microbiology Laboratory Tests 01/18/25 04:08 Test 01/18/25 04:08 Range/Units Serum Glucose 92 74-106 mg/dL Microbiology Date/Time Source Procedure Growth Status 01/15/25 21:00 Nose MRSA Screen - Final Methicillin Resistant S.aureus Complete 01/15/25 13:10 Blood Blood Culture - Preliminary NO GROWTH AFTER 48 HOURS OF INCUBATION. Resulted 01/15/25 12:00 Urine - [place] Urine Culture - Final Complete Problem List/Assessment/Plan Problem List/Assessment/Plan 59 year old M admitted for AMS found to have MARK and severe hypernatremia Acute kidney injury prerenal due to volume depletion severe hypernatremia due to lack of free water Dementia sepsis scabies hypokalemia protein calorie malnutrition MARK resolved no dialysis required Hypernatremia resolved IV now 1/2NS , encourage po replace electrlytes daily no new renal recs will sign off Plan discussed with: Patient Dietary Evaluation Review Recommendations by RD: Increase Calorie Intake, Protein Supplementation Comments: Pt meets criteria for Severe Protein-Calorie Malnutrition in the setting of chronic illness based on moderate muscle wasting, and moderate fat depletion. Nutrition Recommendation: 1) TPN if pt cannot tolerate PO 2) Cosme 1 pk BID, MVI w/ minerals 1 tab daily, VitC 500mg BID, Zinc sulfate 220mg BID x 10 days for pressure ulcer wound healing 3) Ensure High Protein 240ml TID if pt can tolerate PO 4) Monitor NPO status/PO intake, lab values, weight trend, and I/O Expected Outcomes/Goals: To maintain/gain weight TO meet EER >75% within 7 days PU to improve Fu 2-3 days Body Fat Depletion (Severe): Mod to Severe Depletion Muscle Mass (Severe): Mod to Severe Depletion Protein Calorie Malnutrition: Severe Is there a minimum of two crit: Yes OLADELE,LESLEE M MD Jan 18, 2025 12:34
[2025-01-18] MEDS: diphenhdrAMINE HCL 50 MG/1 ML VL IV PRN (21:29)
[2025-01-18] MEDS ORDERED: QUEtiapine FUMARATE 25 MG TAB PO SCH (22:00)
[2025-01-19] VITALS (10 sets, daily range): BP systolic 109–159; BP diastolic 60–83; PULSE 66–75; RESP 14–18; TEMP 97.7–98.6; O2SAT 93–100
[2025-01-19 08:08] LABS: Basophils # (auto) 0 10 ^3/uL (0-0.2); Basophils % (auto) 0.1 % (0.0-2.0); Eosinophils # (auto) 0.6 10 ^3/uL (0-0.8); Eosinophils % (auto) 7.1 % (0.0-7.0); Hematocrit 39.9 % (41.0-53.0); Hemoglobin 13.1 g/dL (13.5-17.5); Lymphocytes # (auto) 0.6 10 ^3/uL (0.4-5.4); Lymphocytes % (auto) 6.9 % (10.0-50.0); Mean Corpuscular Hemoglobin 29.1 pg (28.0-32.0); Mean Corpuscular Hgb Conc. 32.8 g/dL (32.0-36.0); Mean Corpuscular Volume 88.7 fL (80.0-100.0); Monocytes # (auto) 0.5 10 ^3/uL (0-1.3); Monocytes % (auto) 5.7 % (0.0-12.0); Neutrophils # (auto) 7.3 10 ^3/uL (1.6-8.6); Neutrophils % (auto) 80.2 % (37.0-80.0); Platelet Count (auto) 183 10^3/uL (140-450); Red Blood Cells 4.49 10^6/uL (4.5-5.90); Red Cell Distribution Width 15.4 % (11.8-14.3); White Blood Cell 9.1 10^3/uL (4.4-10.8)
[2025-01-19] MEDS: Glucerna Carbsteady SHAKE Vanilla 8oz PO SCH (09:03)
--- NOTE | 2025-01-19 09:50 | ECG ---
[facility] Test Date: 2025-01-19 Test Time: 09:39:10 Pat Name: MOMO JENSEN Department: Respiratoy Room: 0207T A Gender: M Personnel Representative: : 1965 Requested By: MARTIN SANCHEZ Order Number: [id number] Reading MD: Levy Jolley Measurements Intervals [place] Rate: 71 P: 83 NV: 129 QRS: 73 QRSD: 89 T: 0 QT: 468 QTc: 509 Interpretive Statements Sinus rhythm Probable left atrial enlargement Low voltage, extremity leads Nonspecific T abnrm, anterolateral leads Prolonged QT interval Electronically Signed On 01-20-2025 17:35:42 PDT by Levy Jolley Please click the below link to view image of tracing.
[2025-01-19] MEDS: ENOXAPARIN SOD 30 MG/0.3 ML SYRINGE SC SCH (09:56)
[2025-01-19 10:24] LABS: Potassium 3.8 mmol/L (3.5-5.1)
[2025-01-19 10:25] LABS: Anion Gap 10 (5-15)
[2025-01-19 10:28] LABS: Calcium 8.5 mg/dL (8.7-10.4); Carbon Dioxide 19 mmol/L (20-31); Chloride 119 mmol/L (98-107); Sodium 148 mmol/L (136-145)
[2025-01-19 10:30] LABS: BUN/Creatinine Ratio 14.9 (10.0-20.0); Blood Urea Nitrogen 15 mg/dL (9-23); Glucose 87 mg/dL (74-106)
[2025-01-19] MEDS: D5W/SOD CHL 0.45% 1,000 ML IV SCH (13:39)
--- NOTE | 2025-01-19 13:42 | DVHSR ---
APPROVED REPORT EXAM: Two-dimensional and M-mode echocardiogram with Doppler and color Doppler. Blood Pressure: 119/68 mmHg INDICATION NSTEMI RISK FACTORS Height: 5'8", Weight: 130 DIMENSIONS LVDd4.2 (3.8-5.7cm)LA (2D)3.3 (1.9-4.0cm)Aortic Root3.5 (2.0-3.7cm) LVDs2.8 (2.5-4.0cm)LA (MM) (1.9-4.0cm)Aortic Cusp Exc1.7 (1.5-2.0cm) EF (%) 60.0 (55-70%)Rt. Atrium3.3 (1.9-4.0cm)Asc. Aorta cm IVSd0.9 (0.7-1.1cm)RV (D) (1.8-2.4cm) PWd0.9 (0.7-1.1cm) Mitral Valve MitralMitral Stenosis E wave0.57m/sMV Mean GR.mmHg A wave0.86m/sMV Peak GR.mmHg E/A ratio0.72D MVAcm2 DECEL [id number] 1/2 Timems Aortic Valve Aortic ValveAortic Stenosis V10.97m/Katie Mean GR.3mmHg V21.11m/Katie Peak GR.5mmHg LVOT Diameter2.0 (1.8-2.4cm)Doppler AVA2.74cm2 Other Information Quality : LimitedRhythm : Technically limited study due to body habitus, patient altered and lying flat. Conclusion Technically difficult study. Sinus rhythm. Off axis views. Normal chamber sizes. Valves appear to be structurally normal. EF of 55-60% with normal RV function. Suboptimal Doppler. No pericardial effusion masses or vegetations noted.
--- NOTE | 2025-01-19 14:08 | DVHPN2 ---
Subjective Patient more alert today. Reviewed: Care Plan, H&P, Labs Changes from previous H/P or p: No Changes General: Per HPI Objective Vitals Vital Signs Date Time Temp Pulse Resp B/P (MAP) Pulse Ox O2 Delivery O2 Flow Rate FiO2 01/19/25 10:58 93 Room Air* 0 21 01/19/25 09:00 97.8 66 18 122/83 (96) 97.8 Intake/Output Intake and Output 01/19/25 07:00 Intake Total 2245.0 ml Output Total 1725 ml Balance 520.0 ml Intake Oral 895 ml IV Total 1350.0 ml Output Urine Total 1725 ml General Appearance: Alert, Cooperative, mild distress HEENT: Atraumatic, PERRLA Lungs: Normal air movement Cardiovascular: Normal S1, Normal S2 Neuro: Cranial nerves 3-12 NL Skin: Wounds (See nurse notes and pictures) Psych/Mental Status: Mental status NL, Mood NL Medications Current Medications Medications Dose Ordered Sig/Talha Route Start Time Stop Time Status Last Admin Dose Admin Nitroglycerin 0.4 mg Q5MINP PRN SL 01/15/25 16:00 Morphine Sulfate 2 mg Q30M PRN IV 01/15/25 16:00 Pantoprazole Sodium 40 mg DAILY IV 01/16/25 10:00 01/19/25 09:56 40 MG Cefepime HCl 50 ml @ 12.5 mls/hr DAILY IV 01/16/25 10:00 01/19/25 09:56 12.5 MLS/HR Diagnostic Test (Pha) 1 strip Q6HR 01/16/25 12:00 01/19/25 13:01 1 STRIP Insulin Human Regular Q6HR SC 01/16/25 12:00 01/18/25 00:45 6 UNITS Dextrose 50 ml UD PRN IV 01/16/25 08:45 01/18/25 12:04 50 ML Diphenhydramine HCl 25 mg Q4HP PRN IV 01/16/25 08:45 01/19/25 10:21 25 MG Morphine Sulfate 1 mg Q4HPRN PRN IV 01/16/25 08:45 Acetaminophen/ Hydrocodone Bitart 1 tab Q6HPRN PRN PO 01/16/25 08:45 Acetaminophen 500 mg Q8HP PRN PO 01/16/25 08:45 Ondansetron HCl 4 mg Q6HP PRN IV 01/16/25 08:45 Albuterol 2.5 mg Q4HPRN PRN NEB 01/16/25 08:45 Ipratropium [place] 0.5 mg Q4HPRN PRN NEB 01/16/25 08:45 Mupirocin 1 applic BID EACHNOSTRI 01/16/25 22:00 01/21/25 21:59 01/19/25 10:21 1 APPLIC Enoxaparin Sodium 40 mg DAILY SC 01/19/25 10:00 01/19/25 09:56 40 MG Dextrose/Sodium Chloride 1,000 ml @ 75 mls/hr [id number] IV 01/19/25 07:45 01/19/25 13:39 75 MLS/HR Enteral Nutritional Formula 240 ml TIDWM PO 01/19/25 08:00 01/19/25 12:00 240 ML Laboratory Results Laboratory Tests 01/19/25 07:45 Chemistry Test 01/19/25 07:45 Calcium Level 8.5 mg/dL (8.7-10.4) L Urinalysis Test 01/15/25 12:00 Urine Color Yellow (Yellow) Urine Clarity Clear (Clear) Urine pH 5.5 (5.0-9.0) Urine Specific [place] 1.018 (1.001-1.035) Urine Protein Negative (Negative) Urine Ketones Negative (Negative) Urine Blood 1+ /uL (Negative) H Urine Nitrite Negative (Negative) Urine Bilirubin Negative (Negative) Urine Urobilinogen Normal mg/dL (Negative) Urine Leukocyte Esterase Negative /uL (Negative) Urine RBC 17 /hpf (0 - 3) Urine Microscopic WBC 4 /HPF (0-3) H Urine Squamous Epithelial Cells None seen /hpf (<5) Urine Bacteria None seen /hpf (None Seen) Urine Glucose Normal mg/dL (Normal) Microbiology Microbiology Date/Time Source Procedure Growth Status 01/15/25 21:00 Nose MRSA Screen - Final Methicillin Resistant S.aureus Complete 01/15/25 13:10 Blood Blood Culture - Preliminary NO GROWTH AFTER 72 HOURS OF INCUBATION. Resulted 01/15/25 12:00 Urine - [place] Urine Culture - Final Complete Labs and/or images reviewed: Labs reviewed by me, Image(s) reviewed by me Assessment/Plan Assessment/Plan Impression: -metabolic encephalopathy probably secondary to severe dehydration -hyponatremia -acute kidney injury -hyperkalemia -NSTEMI, probably type 2 -history of primary hypertension -history of HIV -diabetes mellitus -cachexia -sepsis -scabies Plan: Events: No events overnight. Patient was noted to have hypoglycemia on several occasions. Change IV fluids. Tolerating oral intake. -continue regular insulin sliding scale -IV fluids: D5 half NS at 75 mL/hour -attempt diet, free water 200 mL q.6 hours -serial BMP q.6 hours -deescalate antibiotics: Stop Zyvox, continue cefepime -nephrology consultation -hold home antihypertensives, antidiabetic meds, antipsychotics -espino cultures: No growth other than MRSA in the nares. -repeat labs in a.m. -reassess for discharge in a.m. if blood sugars remain stable This medical document was created using an electronic medical record system with [employer] dictation system. Although this document has been carefully reviewed, there may still be some phonetic and typographical errors. These areas are purely typographical due to imperfections of the software programs, and do not reflect any compromise in the patient's medical care. Plan discussed with: Patient, Other (RN) My Orders Orders - MARTIN SANCHEZ NP Procedure Category Date Status Time Enoxaparin Sodium PHA 01/19/25 In Process (Lovenox) 10:00 D5w/Sod Chl 0.45% PHA 01/19/25 In Process (D5w 1/2ns) 07:45 Nutritional PHA 01/19/25 In Process Supplements (Glucerna 08:00 Date of Service: Jan 19, 2025 Billing Provider: MARTIN SANCHEZ NP Common Visit Codes: [id number] INP/OBS CARE(HIGH) MARTIN SANCHEZ NP Jan 19, 2025 14:08
[2025-01-19] MEDS: MORPHINE SULFATE INJ 2 MG/ml SYRG IV PRN (17:19)
[2025-01-20 05:56] LABS: Basophils # (auto) 0 10 ^3/uL (0-0.2); Basophils % (auto) 0.1 % (0.0-2.0); Eosinophils # (auto) 0.5 10 ^3/uL (0-0.8); Eosinophils % (auto) 4.6 % (0.0-7.0); Hematocrit 39.2 % (41.0-53.0); Hemoglobin 12.9 g/dL (13.5-17.5); Lymphocytes # (auto) 0.6 10 ^3/uL (0.4-5.4); Lymphocytes % (auto) 5.4 % (10.0-50.0); Mean Corpuscular Hemoglobin 29.2 pg (28.0-32.0); Mean Corpuscular Volume 88.3 fL (80.0-100.0); Monocytes # (auto) 0.7 10 ^3/uL (0-1.3); Monocytes % (auto) 6.3 % (0.0-12.0); Neutrophils # (auto) 9.7 10 ^3/uL (1.6-8.6); Neutrophils % (auto) 83.6 % (37.0-80.0); Nucleated Red Blood Cells % 0.1 %; Platelet Count (auto) 192 10^3/uL (140-450); Red Blood Cells 4.44 10^6/uL (4.5-5.90); Red Cell Distribution Width 14.9 % (11.8-14.3); White Blood Cell 11.6 10^3/uL (4.4-10.8)
[2025-01-20 08:00] VITALS: PULSE 84
--- NOTE | 2025-01-20 08:51 | DVHDS2 ---
Discharge Summary Date of Admission Jan 15, 2025 at 15:48 Date of Discharge: Jan 20, 2025 Admitting Diagnosis Metabolic encephalopathy secondary to dehydration Labs/Diagnostic Data: Laboratory Results Test 01/20/25 05:19 01/20/25 04:48 01/19/25 07:45 01/18/25 04:08 POC Glucose 108 mg/dl (70-106) White Blood Count 11.6 10^3/uL (4.4-10.8) Red Blood Count 4.44 10^6/uL (4.5-5.90) Hemoglobin 12.9 g/dL (13.5-17.5) Hematocrit 39.2 % (41.0-53.0) Mean Corpuscular Volume 88.3 fL (80.0-100.0) Mean Corpuscular Hemoglobin 29.2 pg (28.0-32.0) Mean Corpuscular Hemoglobin Concent 33.0 g/dL (32.0-36.0) Red Cell Distribution Width 14.9 % (11.8-14.3) Platelet Count 192 10^3/uL (140-450) Mean Platelet Volume 9.5 fL (6.9-10.8) Neutrophils (%) (Auto) 83.6 % (37.0-80.0) Lymphocytes (%) (Auto) 5.4 % (10.0-50.0) Monocytes (%) (Auto) 6.3 % (0.0-12.0) Eosinophils (%) (Auto) 4.6 % (0.0-7.0) Basophils (%) (Auto) 0.1 % (0.0-2.0) Neutrophils # (Auto) 9.7 10 ^3/uL (1.6-8.6) Lymphocytes # (Auto) 0.6 10 ^3/uL (0.4-5.4) Monocytes # (Auto) 0.7 10 ^3/uL (0-1.3) Eosinophils # (Auto) 0.5 10 ^3/uL (0-0.8) Basophils # (Auto) 0 10 ^3/uL (0-0.2) Nucleated Red Blood Cells 0.1 % Sodium Level 148 mmol/L (136-145) Potassium Level 3.8 mmol/L (3.5-5.1) Chloride Level 119 mmol/L (98-107) Carbon Dioxide Level 19 mmol/L (20-31) Anion Gap 10 (5-15) Blood Urea Nitrogen 15 mg/dL (9-23) Creatinine 1.01 mg/dL (0.700-1.30) Glomerular Filtration Rate Calc 85 mL/min (>90) BUN/Creatinine Ratio 14.9 (10.0-20.0) Serum Glucose 87 mg/dL (74-106) Calcium Level 8.5 mg/dL (8.7-10.4) Phosphorus Level 2.2 mg/dL (2.4-5.1) Magnesium Level 1.7 mg/dL (1.6-2.6) Test 01/17/25 14:08 01/17/25 04:05 01/16/25 13:03 01/16/25 07:00 Absolute Neutrophils (auto) 13.1 x10E3/uL (1.4-7.0) Absolute Lymphocytes (auto) 1.3 x10E3/uL (0.7-3.1) Absolute Monocytes (auto) 0.7 x10E3/uL (0.1-0.9) Absolute Eosinophils (auto) 0.6 x10E3/uL (0.0-0.4) Absolute Basophils (auto) 0.0 x10E3/uL (0.0-0.2) Immature Granulocytes % 1 % (Not Estab.) Immature Granulocytes # 0.1 x10E3/uL (0.0-0.1) Immature Blood Cells (.) Hematology Comments (.) Percent CD4 Cells 33.1 % (30.8-58.5) Absolute CD4 Count 430 /uL (359-1519) T-Lymphocyte CD4/CD8 Ratio 0.80 (0.92-3.72) Percent CD8 Cells 41.3 % (12.0-35.5) Absolute CD8 Count 537 /uL (109-897) Vitamin D 25-Hydroxy 14.4 ng/mL (30.0-100) Beta-Hydroxybutyric Acid 0.267 mmol/L (< 0.4) Hemoglobin A1c 5.4 % A1C (<5.7) Test 01/15/25 15:13 01/15/25 13:10 01/15/25 12:00 Troponin I High Sensitivity 91 ng/L (</=54) Lactic Acid Level 5.7 mmol/L (0.4-2.0) Urine Color Yellow (Yellow) Urine Clarity Clear (Clear) Urine pH 5.5 (5.0-9.0) Urine Specific [place] 1.018 (1.001-1.035) Urine Protein Negative (Negative) Urine Ketones Negative (Negative) Urine Blood 1+ /uL (Negative) Urine Nitrite Negative (Negative) Urine Bilirubin Negative (Negative) Urine Urobilinogen Normal mg/dL (Negative) Urine Leukocyte Esterase Negative /uL (Negative) Urine RBC 17 /hpf (0 - 3) Urine Microscopic WBC 4 /HPF (0-3) Urine Squamous Epithelial Cells None seen /hpf (<5) Urine Bacteria None seen /hpf (None Seen) Urine Glucose Normal mg/dL (Normal) Other Laboratory Tests 01/20/25 04:48 01/19/25 07:45 Brief Hx & Hospital Course: History of Present Illness Patient is a 59-year-old male transported to the emergency room by ambulance with reports of worsening lethargy/failure to thrive. Upon arrival to the hospital, patient was found to be severely cachectic. Patient is currently aphasic, but was able to follow simple commands and nods yes and no. Apparently, the patient has a history of being aphasic. According to records from [facility], significant history of the patient includes HIV, hypertension, diabetes mellitus, and unspecified psychiatric diagnosis for which he takes Seroquel. Patient was found to be hyperkalemic, with a potassium of 6.1, with severely elevated BUN and creatinine (123/12.9) as well as patient having a sodium level of 184. Patient also has white blood cell count of 16.1. Lactic acid level of 4.9. Course of hospitalization: Patient was given aggressive IV hydration with D5W. Patient was then transitioned to half NS, with the implementation free water once patient was tolerating oral intake. Patient's renal function improved to be within normal limits. Patient is more alert, following commands, with all signs of encephalopathy resolving. All cultures have been negative thus far. Patient was found to have scabies upon arrival to the emergency room for which he was treated. Patient will be discharged back to [facility] and to continue all previous medications prescribed. Physical examination General: Alert and Oriented x3. No acute distress. Well-nourished. Eyes: EOMI. Anicteric. HENT: Moist mucous membranes. Lungs: Clear to auscultation bilaterally. No accessory muscle use. Cardiovascular: Regular rate and rhythm. No murmur. No JVD. Abdomen: Soft, non-tender and non-distended. No palpable masses. Extremities: No edema. Non-tender. Skin: No rashes or lesions. Warm. Neurologic: No focal neurological deficits. CN II-XII grossly intact, but not individually tested. Psychiatric: Cooperative. Appropriate mood and affect. Total time spent with patient discussing and formulating plan of care: 35 minutes. This medical document was created using an electronic medical record system with [employer] dictation system. Although this document has been carefully reviewed, there may still be some phonetic and typographical errors. These areas are purely typographical due to imperfections of the software programs, and do not reflect any compromise in the patient's medical care. Consults/Reason for consult Nephrology: Acute kidney injury Condition at Discharge: Guarded Final Diagnosis/Problems List Acute metabolic encephalopathy Secondary diagnosis: -metabolic encephalopathy probably secondary to severe dehydration -hyponatremia -acute kidney injury -hyperkalemia -NSTEMI, probably type 2 -history of primary hypertension -history of HIV -diabetes mellitus -cachexia -sepsis , ruled out -sirs with organ dysfunction -scabies Discharge Disposition: Custodial Facility Discharge Instruct/Medications Diet: Consistent carbohydrate Activity: No Restrictions, As Tolerated Follow Up/Referral: Per accepting provider intermediate facility Medications: Refer to medication reconciliation form 36 Discharge Statement: "Patient was advised to return to the ER or call 911 if any headaches, dizziness, shortness of breath, chest pain, abdominal pain, bleeding, fevers, or worsening of medical condition. Patient was counseled about treatment plan, medications, possible side effects, patientverbalized understanding. All questions were answered to the best of my ability. This discharge took greater then 30 minutes in planning, reviewing documentation, counseling the patient, and discussing with other team members." ASSESSMENT ASSESSMENT Assessment Acute metabolic encephalopathy Date of Service: Jan 20, 2025 Billing Provider: MARTIN SANCHEZ NP Common Visit Codes: 81681-IOV/OBS DISCH DAY >30min MARTIN SANCHEZ NP Jan 20, 2025 08:51
[2025-01-20 09:57] VITALS: O2SAT 97
== END 2025-01-20 13:25 | DRG 426 ==
LOC: ER 10:46 → EDBD 10:46 → OVERFLOW 15:48 → ICU WEST 01-17 02:04 → TELE-CENTR 01-18 14:07
PROVIDERS: ADMIT Nurse Practitioner Acute Care; ATTEND Nurse Practitioner Acute Care
PROC: 05H933Z Insertion of Infusion Device into Right Brachial Vein, Percutaneous Approach (ICD-10-PCS; principal; 2025-01-15)
PROC: B54MZZA Ultrasonography of Right Upper Extremity Veins, Guidance (ICD-10-PCS; 2025-01-15)
DX: E87.0 Hyperosmolality and hypernatremia (principal); R65.11 Systemic inflammatory response syndrome (SIRS) of non-infectious origin with acute organ dysfunction; N17.0 Acute kidney failure with tubular necrosis; G93.41 Metabolic encephalopathy; E43 Unspecified severe protein-calorie malnutrition; I21.A1 Myocardial infarction type 2; G30.9 Alzheimer's disease, unspecified; F02.80 Dementia in other diseases classified elsewhere, unspecified severity, without behavioral disturbance, psychotic disturbance, mood disturbance, and anxiety; E11.9 Type 2 diabetes mellitus without complications; B86 Scabies; E86.0 Dehydration; E83.39 Other disorders of phosphorus metabolism; R62.7 Adult failure to thrive; R47.01 Aphasia; G31.9 Degenerative disease of nervous system, unspecified; I10 Essential (primary) hypertension; E87.5 Hyperkalemia; E87.6 Hypokalemia; Z68.20 Body mass index [BMI] 20.0-20.9, adult
CPT/HCPCS: 36415; 70450; 71045; 80048; 81001; 82010; 82306; 82962; 83036; 83605; 83735; 84100; 84132; 84484; 85025; 86360; 87040; 87081; 87086; 92610; 93005; 93306; 94640; 96365; 96372; 99291; G0378; J0692; J1815; J2470; J3480

== ENCOUNTER 2025-01-29 07:13 | Emergency (ER) | payer OTHER ==
[~2025-01-29] VITALS: Ht 170.2 cm; Wt 57.0 kg
[2025-01-29 07:13] VITALS: BP 49/25; PULSE 24; RESP 20; TEMP 98.1; O2SAT 99
[2025-01-29 07:27] VITALS: PULSE 115
[2025-01-29] MEDS ORDERED: SODIUM CHLORIDE 0.9% 3,000 ML IV ONE (07:30)
[2025-01-29] MEDS ORDERED: NOREPINEPHRINE 8 MG/250ML KIT 250 ML IV SCH (07:30)
[2025-01-29] MEDS ORDERED: NOREPINEPHRINE 8 MG/250ML KIT 250 ML IV ONE (07:31)
--- NOTE | 2025-01-29 07:32 | ED.PDOC ---
CPR-HPI HPI Comments 59 y/o M, BIBA, with PMHx of HIV nad HTN prsents to the ED in full arrest. EMS reports, patient is coming from [facility] where emergency medical services were called d/t patient being slow to respond only reactive to painful stimuli onset, 0500 this morning (01/29/25). Per EMS, in route to the ED patient had an initial sinus rhythm in the 80's, at approximately 0712 patient went in respiratory arrest followed by cardiac arrest. Patient was given x1 epinephrin in route. Patient arrived to the ED at 0714 and was transferred to ER bed 07, for further care per ALS protocol. Chief Complaint: CPR Time Seen by MD: 07:14 Reviewed Notes: Nurses Notes, Wedding Transportation Driver Notes, Medications, Allergies Allergies: Coded Allergies: NO KNOWN ALLERGIES (Unverified , 01/15/25) Home Meds No Active Prescriptions or Reported Meds Information Source: Emergency Med Personnel Mode of Arrival: EMS Timing: Minutes Duration: Down time prior EMS: (0), Total time prior hopital: (2min) Onset: At rest, Witnessed Available Hx: Unknown Inital rhythm: Asystole Treatment: CPR, Epinephrine Associated signs and symptoms: None Past Medical History PAST MEDICAL HISTORY: HIV, HTN Surgical History: Denies all surgeries Family History Family History: Unknown Social History Smoker: Non-Smoker Alcohol: Denies ETOH Use Drugs: Denies Drug Use Lives In: Home Unable to Obtain due to: Medical Urgency Physical Exam General Appearance: Severe Distress HEENT: Other (Pupils fixed and dilated) Neck: NOT DONE Respiratory: Respiratory Distress, Other (Intubated the patient) Cardiovascular: Other (No pulse) Breast Exam: Deferred Gastrointestinal: Soft Genitalia: Deferred Pelvic: Deferred Rectal: Deferred Extremities: Other (Mottled) Neurologic: Other (Unconscious) Cerebellar Function: NOT DONE Reflexes: NOT DONE Skin: Pallor Peripheral Pulses: 0 Radial (R), 0 Radial (L) Lymphatic: NOT DONE EKG EKG : Cardiac Rhythm: ST Was a procedure done? Was a procedure done?: Yes Sedation Sedation?: No Central Line Recorder of insertion practice: Press Technician Occupation of auto job estimator: Attending Physician Indication: Hypotension, CVP monitoring Room prepared for procedure: Yes Press Technician performed hand hygien: Yes Maximal sterile barrier precau: Mask/Eye shield, Sterile gown Skin Preparation: Providine iodine Skin preparation completely dr: Yes Insertion site: Right, Femoral Central line catheter type: [facility]-fedbabic-wsk dialysis Number of lumens: 3 Antiseptic ointment applied to: Yes Intubation Indication: Respiratory Insufficiency Prep: Preoxygenation Intubation Approach: Orotracheal Intubation size: cm (8) Differential Dx CPR Differential Diagnosis: Cardiopulmonary arrest, Respiratory Failure X-Ray, Labs, Meds, VS Vital Signs Date Time Temp Pulse Resp B/P (MAP) Pulse Ox O2 Delivery O2 Flow Rate FiO2 01/29/25 07:27 115 Patient unconscious pain Mottled pain No pulse pain Intubate the patient. ACLS drugs. Central line placed. Was able to revive the patient. After 15 minutes patient had lost pulses. Continued ACLS drugs. Started fluids. EKG does show sinus tachycardia. Unable to revive the patient. Spoke with the team. Had to pronounce the patient. Waiting for family. Time of 1ST Reevaluation: 07:44 Reevaluation 1ST: Unchanged Patient Education/Counseling: Diagnosis, Treatment Family Education/Counseling: No Family Present SEPSIS Sepsis Screen Physician Orders Sodium Chloride 0.9% (01/29/25 07:30) Norepinephrine 8 Mg/250ml Kit (Levophed) (01/29/25 07:30) Chest Portable (01/29/25 07:33) Vital Signs Date Time Temp Pulse Resp B/P (MAP) Pulse Ox O2 Delivery O2 Flow Rate FiO2 01/29/25 07:27 115 Departure 1 Departure Time of Disposition: 07:58 Impression: Primary Impression: Acute renal failure Qualified Codes: N17.9 - Acute kidney failure, unspecified Additional Impression: Sepsis Qualified Codes: A41.9 - Sepsis, unspecified organism Disposition: 20 Condition: Other e-Prescriptions No Active Prescriptions or Reported Meds Critical Care Note Critical Care Time?: Yes (45 min-critical care time only) Critical care comment: Came in his CPR was able to revive the patient placed ET tube along with central line Heart Score Heart Score: Heart Score Response (Comments) Value History Slightly Suspicious 0 EKG Normal 0 Age 45-64 1 Risk Factors >3 or Hx ASHD 2 Troponin N/A 0 Total 3 Stability Stability form required: No I personally scribed for KASH DUMONT MD ([email or web address]) on 01/29/25 at 07:31. Electronically submitted by Shannon Reno ([email or web address]). KASH DUMONT MD Jan 29, 2025 07:31
--- NOTE | 2025-01-29 07:34 | ECG ---
[facility] Test Date: 2025-01-29 Test Time: 07:27:34 Pat Name: MOMO JENSEN Department: ED Room: Gender: M Is Technician: SHANNAN : 1965 Requested By: KASH DUMONT Order Number: [id number] Reading MD: Levy Jolley Measurements Intervals [place] Rate: 115 P: 80 MI: 144 QRS: -69 QRSD: 91 T: 90 QT: 373 QTc: 516 Interpretive Statements Sinus tachycardia Inferior infarct, old Lateral leads are also involved Prolonged QT interval Electronically Signed On 01-29-2025 22:57:30 PDT by Levy Jolley Please click the below link to view image of tracing.
--- NOTE | 2025-01-29 08:25 | RESUS ---
CODE BLUE ASSESSSMENT History of Events History of Events: Patient brought in by ambulance apneic and in asystole with CPR in progres. Per EMS, patient picked up from [facility]. Per [facility] staff, patient aloc since 0500 and became unresponsive. Upon EMS arrival, patient found in SR 80 but only responsive to pain.l Upon route, patient went into respiratory arrest followed by asystole. CPR was initiated by EMS and Epinephrine 1 mg IVP x1 was given via LLE I/O. Blood sugar 78. Initial Information Date: Jan 29, 2025 Time: 07:13 Location of Arrest: ER (Bed 7) Arrest Witnessed: Yes CPR started by whom: EMS Last seen well: 0500 Pre-Hospital Care: ACLS Type of arrest: Cardiac, Respiratory, Adult, Witnessed Spontaneous Respirations: No Pulse Present: No Monitoring: ECG, Pulse Oximetry Crash Cart Opened and Supplies: Yes Airway Ventilation Breathing at Onset: Apneic Oxygen Delivery Method: Ambu-Bag Oxygen 15 Liters Artificial Ventilation: Bag/Mask, Bag/Endo tube Intubation Time: 07:17 Intubation Size: 8.0 cuffed Intubated by: Dr. Cui Intubation Attempts: 1 Intubated orally: Yes Intubated Nasaly: No Tube secured at: 24 Cricoid pressure done: No CO2 indicator used: Yes Confirmation: Auscultation, Exhaled CO2 Suctioning (Oral/Tracheal): Yes Circulation Circulation #1: Time: 07:13 Pulse Rate (adult): 0 Blood Pressure Systolic: 0 Blood Pressure Diastolic: 0 Circulation #2: Time: 07:25 Pulse Rate (adult): 118 Blood Pressure Systolic: 96 Blood Pressure Diastolic: 70 Temperature (Fahrenheit): 98.9 Circulation Comment: Temp checked rectally. Circulation #3: Time: 07:26 Pulse Rate (adult): 120 Blood Pressure Systolic: 100 Blood Pressure Diastolic: 67 Circulation #4: Time: 07:28 Pulse Rate (adult): 108 Blood Pressure Systolic: 84 Blood Pressure Diastolic: 54 Circulation #5: Time: 07:34 Pulse Rate (adult): 87 Blood Pressure Systolic: 44 Blood Pressure Diastolic: 25 Circulation #6: Time: 07:38 Pulse Rate (adult): 0 Blood Pressure Systolic: 0 Blood Pressure Diastolic: 0 Circulation Comment: Code Blue- CPR initiated Procedure - IV Procedure - IV : IV start time: 07:18 IV Side: Right IV Location: Wrist IV Catheter Type: Saline Lock IV Placed: In Hospital IV Placed by Doug MARION IV Gauge: 20 IV Line Care: Saline Flush Procedure - Intraosseous Size of intraosseous: 25 Site of Intraosseous: Tibia esthela-medial (LLE) Intraosseous inserted by: EMS Medications & Response Medications and Responses #1: Medication Time: 07:15 ADULT Medications Given ADULT: Epinephrine 1 mg Route of Administration: IO Heart Rate: 0 EKG Rhythm: Asystole Blood Pressure Systolic: 0 Blood Pressure Diastolic: 0 EKG Rhythm: Asystole Medications and Responses #2: Medication Time: 07:16 ADULT Medications Given ADULT: Sodium Bacarbinate 50 meq Route of Administration: IO Heart Rate: 0 EKG Rhythm: Asystole Blood Pressure Systolic: 0 Blood Pressure Diastolic: 0 EKG Rhythm: Asystole Medications and Responses #3: Medication Time: 07:18 ADULT Medications Given ADULT: Epinephrine 1 mg Route of Administration: IV Heart Rate: 0 EKG Rhythm: Asystole Blood Pressure Systolic: 0 Blood Pressure Diastolic: 0 Respiratory Rate: 12 EKG Rhythm: Asystole Medications and Responses #4: Medication Time: 07:19 ADULT Medications Given ADULT: Calcium Chloride 10 mL Route of Administration: IV Heart Rate: 0 EKG Rhythm: Asystole Blood Pressure Systolic: 0 Blood Pressure Diastolic: 0 Respiratory Rate: 12 EKG Rhythm: Asystole Medications and Responses #5: Medication Time: 07:21 ADULT Medications Given ADULT: Epinephrine 1 mg, Sodium Bacarbinate 50 meq Route of Administration: IV Heart Rate: 0 EKG Rhythm: Asystole EKG Rhythm: Sinus Tachycardia Comment 0723- ROSC Medications and Responses #6: Medication Time: 07:24 ADULT Medications Given ADULT: Sodium Bacarbinate 50 meq Route of Administration: IV Heart Rate: 105 EKG Rhythm: Sinus Tachycardia EKG Rhythm: Sinus Tachycardia Medications and Responses #7: Medication Time: 07:35 Route of Administration: IV Medication Comment: Levophed gtt started at 20 mcg/min per Dr. Cui verbal order. 0.9 NS 1 liter bolus started per Dr. Cui verbal order. Heart Rate: 87 EKG Rhythm: Sinus Rhythm Blood Pressure Systolic: 44 Blood Pressure Diastolic: 25 Respiratory Rate: 14 Medications and Responses #8: Medication Time: 07:38 ADULT Medications Given ADULT: Epinephrine 1 mg, Sodium Bacarbinate 50 meq Route of Administration: IV Heart Rate: 0 EKG Rhythm: PEA Blood Pressure Systolic: 0 Blood Pressure Diastolic: 0 EKG Rhythm: Asystole Procedure - Central Venous Cat Central venous catheter time: 07:30 Central venous catheter site: Rt Femoral Comment: Inserted by Dr. Cui Nurses Notes Kvng Coma Scale Eye Opening: None (1) [place] Coma Scale Verbal: None (1) Kv[place] Coma Scale Motor: None (1) [place] Total: 3 Pupil Reaction: Non Reactive EKG Rhythm: Sinus Rhythm, Sinus Tachycardia, PEA, Asystole Nurses Notes - Comment: 0713- Arrived 0723- ROSC 0738- CODE BLUE 0740- Pronounced Approximately 400 ml 0.9 NS infused throughout code blue. Time Code Ended Time Code Ended: 07:40 Post Arrest Status: Outcome of code: Unsuccessful Patient pronounced by: Dr. Cui Time patient pronounced: 07:40 Code Team Present: Doug Shen RN, Srinivas ERT, Keith ERTAlisson RT, Latasha RT, Doug Osuna RN, Kamlesh Montez SE RT, Michell RN Post Resuscitation Neurologica Pupil Size: 3 Comment: Fixed and dilated ROSC Time of ROSC: 07:23 Michell Aguilera Jan 29, 2025 08:25
== END 2025-01-29 07:40 ==
LOC: EDBD 07:13 → ER 07:13
DX: I46.9 Cardiac arrest, cause unspecified (principal); A41.9 Sepsis, unspecified organism; R65.20 Severe sepsis without septic shock; N17.9 Acute kidney failure, unspecified; I10 Essential (primary) hypertension; Z21 Asymptomatic human immunodeficiency virus [HIV] infection status
CPT/HCPCS: 31500; 36556; 92950; 93005